=== PATIENT | male | born 1970 | race Caucasian/White ===

== ENCOUNTER 2019-08-12 08:57 | Day surgery (SDC) | payer OTHER, SELFPAY ==
[2019-01-07 09:51] VITALS: BMI 38.9
[2019-08-05 09:30] VITALS: BMI 38.9
--- NOTE | 2019-08-05 09:48 | RAD_ITS ---
STUDY: X-RAY CHEST REASON FOR EXAM: Male, 49 years old. Left-sided pacemaker. TECHNIQUE: PA and lateral views of the chest. COMPARISON: None. FINDINGS: A left-sided pacemaker with the lead overlying the heart. The lungs are clear and expanded. There is no demonstrated pleural abnormality. Normal size heart. Normal mediastinum and neris. Normal visualized pulmonary arteries. Normal visualized aortic arch and descending thoracic aorta. There are diffuse degenerative changes of the visualized thoracic spine. Normal visualized ribs, clavicles, and shoulders. There is no demonstrated abnormality of the visualized soft tissue structures of the upper abdomen. RAD/Chest PA and Lateral IMPRESSION: Left-sided pacemaker. Borderline cardiac enlargement. No demonstrated acute cardiopulmonary process. Electronically Signed: Lauren Portillo MD at 17:09 EST Tel , Service support ,
[2019-08-05 10:37] LABS: Color, Urine Yellow (Yellow); Glucose, Dipstick Normal (Normal); Ketone-Dipstick Negative (Negative); Leukocyte Esterase-Dipstick 25 /ul (Negative); Nitrite-Dipstick Negative (Negative); Occult Blood-Urine Negative /ul (Negative); Protein-Dipstick 15 mg/dl (Negative); Urine Bilirubin Dipstick Negative (Negative); Urine Clarity Sl. Cloudy (Clear); Urine Urobilinogen Normal (Normal)
[2019-08-05 10:39] LABS: Hematocrit 46.5 % (40-54); Hemoglobin 16.1 g/dL (13.0-16.5); Mean Corp Hgb Conc 34.6 g/dL (32-36); Mean Corpuscular Hgb 30.9 pg (27.0-32.0); Mean Corpuscular Volume 89.3 fL (80-94); Mean Platelet Vol. 10.8 fl (6.2-12.0); Platelet Count 298 K/mm3 (150-450); RBC Distribution Width CV 12.8 % (11.6-14.6); RBC Distribution Width SD 41.8 fl (35.1-43.9); Red Blood Count 5.21 M/mm3 (4.6-6.2)
[2019-08-05 10:47] LABS: Bacteria 1+ /hpf (None Seen); Mucous, Urine 2+ /hpf (<or=2+); Red Blood Cells-Urine 0-5 SEEN /hpf (0-5); Squamous Epithelial Cells - UA 0-5 SEEN /hpf (0-5); White Blood Cells 5-10 SEEN /hpf (0-5)
[2019-08-05 10:55] LABS: International Normalized Ratio 0.9; Prothrombin Time (Protime)PT. 12.4 SECONDS (11.7-14.9)
[2019-08-05 10:57] LABS: Anion Gap 5 (5-15); BUN 12 mg/dL (7-18); BUN/Creat Ratio 11.7 RATIO (10-20); Calcium,Total 9.2 mg/dL (8.5-10.1); Chloride 109 mmol/L (98-107); Creatinine, Serum 1.03 mg/dL (0.70-1.30); EST Glomerular Filtration Rate 82 mL/min (>60); Est Glom Filt Rate - Afr Amer 99 mL/min (>60); Glucose 108 mg/dL (74-106); Potassium 3.7 mmol/L (3.5-5.1); Sodium Level 141 mmol/L (136-145)
[2019-08-09 08:57] LABS: Bacteria 0 SEEN /hpf (None Seen); Mucous, Urine 0 SEEN /hpf (<or=2+); Red Blood Cells-Urine 0 SEEN /hpf (0-5); White Blood Cells 0 SEEN /hpf (0-5)
[2019-08-09 09:23] VITALS: BMI 37.8
[2019-08-09 10:21] LABS: Color, Urine Yellow (Yellow); Glucose, Dipstick Normal (Normal); Ketone-Dipstick Negative (Negative); Leukocyte Esterase-Dipstick Negative /ul (Negative); Nitrite-Dipstick Negative (Negative); Occult Blood-Urine Negative /ul (Negative); Protein-Dipstick Negative (Negative); Urine Bilirubin Dipstick Negative (Negative); Urine Clarity Clear (Clear); Urine Urobilinogen Normal (Normal)
[2019-08-09 10:22] LABS: Hematocrit 49.5 % (40-54); Mean Corp Hgb Conc 34.3 g/dL (32-36); Mean Corpuscular Hgb 30.5 pg (27.0-32.0); Mean Corpuscular Volume 88.9 fL (80-94); Mean Platelet Vol. 11.5 fl (6.2-12.0); Platelet Count 319 K/mm3 (150-450); RBC Distribution Width CV 13.1 % (11.6-14.6); RBC Distribution Width SD 42.3 fl (35.1-43.9); Red Blood Count 5.57 M/mm3 (4.6-6.2); White Blood Count 10.3 K/mm3 (4.4-11.0)
[2019-08-09 10:30] LABS: Squamous Epithelial Cells - UA 0-5 SEEN /hpf (0-5)
--- NOTE | 2019-08-12 10:48 | CL.IE_ITS ---
Patient: RHETT SILVA Study Date: 08/12/2019 Performing: Jerry Dozier MD : 1970 Age: 49 Gender: male PROCEDURES PERFORMED IG70-OXOPAGT REMOVAL+REPLACEMENT PACER-SINGLE LEAD INDICATIONS Sinoatrial node dysfunction/Sick sinus syndrome End-of-life replacement indicator PROCEDURE DETAILS The patient was brought to the Catheterization Lab in the postabsorptive nonsedated state. Infor med consent was obtained prior to the procedure. Local anesthetic was given subcutaneously to the le ft subclavian region with Lidocaine 2%. Incision was made to the left subclavicular area. PPM generat or was removed. PPM ventricular lead (existing) was checked and tested. Device pocket was irrigated w ith antibiotic. Subcutaneous closure was completed with 3-0 Vicryl. Skin closure was completed with 3 -0 Vicryl. The patient tolerated the procedure well. 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 Ancef 2 Gm IV @ 08/12/2019 09:47:35 Signed By Jerry Dozier MD On 08/12/2019 10:48:04 Jerry Dozier MD
== END 2019-08-12 12:05 | disposition home or self-care (01) ==
LOC: CLSP 08:58
PROVIDERS: Internal Medicine Cardiovascular Disease; Family Provider Family Medicine; PCP Family Medicine; Referring Provider Internal Medicine Cardiovascular Disease; Visit Provider Internal Medicine Cardiovascular Disease
DX: Z45.010 Encounter for checking and testing of cardiac pacemaker pulse generator [battery] (principal); I45.5 Other specified heart block; Z87.891 Personal history of nicotine dependence; I49.5 Sick sinus syndrome
CPT/HCPCS: 33227; 36415; 71046; 80048; 81001; 85027; 85610; 99152; 99153; J7050

== ENCOUNTER 2021-11-08 14:50 | Outpatient (CLI) | payer OTHER, SELFPAY ==
[2021-11-08 15:06] LABS: Bacteria 0 SEEN /hpf (None Seen); Mucous, Urine 0 SEEN /hpf (<or=2+); Red Blood Cells-Urine 0 SEEN /hpf (0-5); Squamous Epithelial Cells - UA 0 SEEN /hpf (0-5); White Blood Cells 0 SEEN /hpf (0-5)
[2021-11-08 18:05] LABS: Absolute Lymphocyte Count 2.06 X10^3/uL (0.83-4.51); Absolute Neutrophil Count 8.1 X10^3/uL (2.0-7.7); Basophil# 0.05 X10^3/uL; Basophil% 0.4 % (0-1); Eosinophil# 0.13 X10^3/uL; Eosinophils% 1.1 % (0-5); Hematocrit 48.4 % (40-54); Lymphocyte # 2.06 X10^3/ul (0.83-4.51); Lymphocyte % 18.1 % (19-41); Mean Corp Hgb Conc 35.1 g/dL (32-36); Mean Corpuscular Hgb 31.3 pg (27.0-32.0); Mean Corpuscular Volume 89.1 fL (80-94); Mean Platelet Vol. 11.6 fl (6.2-12.0); Monocyte% 8.8 % (0-10); NRBC Flagged by Analyzer 0 % (0-5); Neutrophil # 8.09 X10^3/uL (2.7-7.7); Neutrophil % 71.4 % (47-70); Platelet Count 301 K/mm3 (150-450); RBC Distribution Width CV 12.9 % (11.6-14.6); RBC Distribution Width SD 42.2 fl (35.1-43.9); Red Blood Count 5.43 M/mm3 (4.6-6.2); White Blood Count 11.4 K/mm3 (4.4-11.0)
[2021-11-08 18:12] LABS: Color, Urine Yellow (Yellow); Glucose, Dipstick Normal (Normal); Ketone-Dipstick 5 mg/dl (Negative); Leukocyte Esterase-Dipstick Negative /ul (Negative); Nitrite-Dipstick Negative (Negative); Occult Blood-Urine 10 /ul (Negative); Protein-Dipstick 15 mg/dl (Negative); Specific Gravity, Urine 1.025 (1.002-1.030); Urine Bilirubin Dipstick Negative (Negative); Urine Clarity Clear (Clear); Urine Urobilinogen Normal (Normal)
[2021-11-08 18:25] LABS: Calcium Oxalate Crystals Ur RARE /hpf (<or=2+)
[2021-11-08 18:56] LABS: ALB/GLOB Ratio 1.1 RATIO (0.9-2.4); AST(SGOT) 28 U/L (15-37); Alanine Aminotransfer ALT/SGPT 54 U/L (16-61); Albumin, Serum 3.9 g/dL (3.2-5.0); Alkaline Phosphatase 66 U/L (45-117); Anion Gap 5 (5-15); BUN 18 mg/dL (7-18); BUN/Creat Ratio 16.4 RATIO (10-20); Calcium,Total 9.6 mg/dL (8.5-10.1); Chloride 109 mmol/L (98-107); Cholesterol 144 mg/dL (200); EST Glomerular Filtration Rate 75 mL/min (>60); Est Glom Filt Rate - Afr Amer 91 mL/min (>60); Globulin 3.6 g/dL (2.2-4.2); Glucose 91 mg/dL (74-106); High Density Lipoprotein 39 mg/dL; Potassium 4.1 mmol/L (3.5-5.1); Protein, Total 7.5 g/dL (6.4-8.2); Sodium Level 138 mmol/L (136-145); Thyroid Stim Hormone (TSH) 0.93 uIU/mL (0.358-3.74); Triglycerides 292 mg/dL; Very Low Density Lipoprotein 58 mg/dL (5-40)
== END 2021-11-08 23:59 | disposition home or self-care (01) ==
LOC: MTLAB 14:52
PROVIDERS: PCP Family Medicine; Referring Provider Family Medicine; Visit Provider Family Medicine
DX: E66.9 Obesity, unspecified (principal); R03.0 Elevated blood-pressure reading, without diagnosis of hypertension
CPT/HCPCS: 36415; 80053; 80061; 81001; 83735; 84443; 85025

== ENCOUNTER 2021-11-11 09:14 | Outpatient (CLI) | payer OTHER, SELFPAY ==
[2021-11-11 10:45] LABS: Ferritin 143 ng/mL (26-388); Iron 99 ug/dL (65-175); Iron Binding Capacity,Total 356 ug/dL (250-450); PERCENT IRON SATURATION 27.8 % (15.0-55.0)
[2021-11-12 13:37] LABS: Transferrin 277 mg/dL (177-329)
== END 2021-11-11 23:59 | disposition home or self-care (01) ==
LOC: MFPLAB 09:15
PROVIDERS: PCP Family Medicine; Referring Provider Family Medicine; Visit Provider Family Medicine
DX: R03.0 Elevated blood-pressure reading, without diagnosis of hypertension (principal); E66.9 Obesity, unspecified
CPT/HCPCS: 36415; 82728; 83540; 83550; 84466

== ENCOUNTER 2021-11-30 15:17 | Outpatient (CLI) | payer OTHER, SELFPAY ==
--- NOTE | 2021-11-30 16:14 | CT_ITS ---
STUDY: LOW DOSE CT LUNG CANCER SCREENING REASON FOR EXAM: Male, 51 years old. HX. OF TOBACCO ABUSE. One pack per day for 20 years. RADIATION DOSAGE (If Supplied By Facility): CTDIvol = ( 4.02 ) mGy, DLP = ( 109.78 ) mGycm TECHNIQUE: No contrast was administered. Low dose technique was utilized (average mAS-38 and kVp 120). 1.25 mm axial source images with a slice interval of 1.25-mm were reconstructed in lung windows. 2.5 mm axial source images with a slice interval of 2.5-mm were reconstructed in lung windows. 5.0 mm axial source images with a slice interval of 5.0-mm were reconstructed in soft tissue windows. Nodule measured using lung windows on PACS and/or independent workstation with automated measurement of minimum and maximum diameter. Nodule measurement reported as average diameter rounded to the nearest whole number. Growth is defined as an increase ins size of greater than 1.5 mm. COMPARISON: None. NODULES: No suspicious nodules are seen. Emphysema: No significant emphysematous changes are present. Endobronchial lesion: None Aorta: Unremarkable Coronary arteries: Unremarkable Heart: A left-sided unipolar pacemaker is seen. Pulmonary artery: Unremarkable Mediastinal nodes: Unremarkable Other chest and abdominal findings: CT/Low Dose CT Lung Screening IMPRESSION: Lung-RADS category 2 - Continue annual screening with LDCT in 12 months. IMPORTANT NOTES FOR USE: ACR Lung-RADS Version 1.1 Assessment Categories Release Date: 2018 Category: Coded 0-4 bases on nodule(s) with highest degree of suspicion. Negative screen is defined as categories 1 and 2; a positive screen is defined as categories 3 and 4. Category 3 and 4A nodules that are unchanged on interval CT should be coded as category 2, and individuals returned to screening in 12 months. Category 4X: Category 3 or 4 nodules with additional imaging findings that increase the suspicion of lung cancer, such as spiculation, GGN that doubles in size in 1 year, enlarged lymph notes, etc. Category Modifiers: S (significant finding unrelated to lung cancer) Electronically Signed: Miki Samayoa MD at 8:51 EDT ,
== END 2021-11-30 23:59 | disposition home or self-care (01) ==
LOC: CT 15:24
PROVIDERS: PCP Family Medicine; Referring Provider Family Medicine; Visit Provider Family Medicine
DX: Z12.2 Encounter for screening for malignant neoplasm of respiratory organs (principal); Z87.891 Personal history of nicotine dependence
CPT/HCPCS: 71271

== ENCOUNTER 2022-01-14 07:00 | Day surgery (SDC) | payer OTHER, SELFPAY ==
[2022-01-14] VITALS (7 sets, daily range): BP systolic 107–145; BP diastolic 53–94; PULSE 54–67; RESP 16–18; TEMP 36.3–36.8; O2SAT 92–100; BMI 37.1
--- NOTE | 2022-01-14 07:25 | HP.PCM_ITS ---
History and Physical Date of Admission: 01/14/22 Intake Visit Reasons: C-Scope/Needs OV per OA Chief Complaint: screening colonoscopy/ EGD for GERD Budget Accountant Required: No Is patient in pain?: No Allergies Sulfa (Sulfonamide Antibiotics) Allergy (Unknown, Verified 05/20/21 09:26) Unknown Medications omeprazole 20 mg capsule,delayed release 20 mg PO DAILY cap 12/10/21 [History Confirmed 12/10/21] [facility] Medical History (Updated 12/10/21 @ 13:[address] Tree Benavidez MD) GERD (gastroesophageal reflux disease) Presence of cardiac pacemaker Sinoatrial block Sleep apnea Syncope and collapse Surgical History (Updated 12/10/21 @ 12:58 by Samantha Matias) History of permanent cardiac pacemaker placement (~07/2006) History of permanent cardiac pacemaker placement (~08/2020) History of tonsillectomy and adenoidectomy Family History (Updated 12/10/21 @ 13:00 by Samantha Matias) Father Brain aneurysm Brother Multiple sclerosis Uncle CAD (coronary artery disease) Grandfather CAD (coronary artery disease) Grandfather CVA (cerebral vascular accident) Cancer Lung Grandmother Breast cancer Social History (Reviewed 05/20/21 @ 09:26 by Amilcar Martini PATIENT SERVICES SPECIALIST, PATIENT SERVICES SPECIALIST-C) Smoking Status: Former smoker alcohol intake: never substance use type: does not use HPI HPI HPI: RHETT SILVA, is a 51 M who presents to the office today for surgical consultation regarding a screening colonoscopy. The patient is referred by Dr Amilcar Wayne and a written copy of my surgical consult recommendations will return to him. It is pertinent that the patient has had a pacemaker in place since age 35. Report suggest that he weighed 200 pounds graduated from high school in the high as he weighed was 286 pounds. He has symptoms of gastroes ophageal reflux disease that initiated in the 1990s. He has never had an upper endoscopy. He started smoking at the age of 14. Maximum a pack per day for 27 years. He is on omeprazole therapy for his GERD. Current body weight is listed at 272 pounds with a BMI of 37.9. There is concerns that he may have sleep apnea and he is being referred to Dr. Tree Keene of pulmonology. The patient has had long-term gastroesophageal reflux disease. He takes omeprazole 20 mg nightly. He used to take it as needed but now is on it constantly. Spicy foods will make him reflux. He does have some reflux at night as well He denies bright red blood per rectum or melena. He quit smoking cigarettes 12 years ago. is Tanvi ISSA General General: No weight change, appetite, fatigue, colon cancer, breast cancer or weakness HEENT HEENT: No difficulty swallowing, eye injury, eye surgery, swollen glands or hoarseness Endo Endocrine: No thyroid disease, diabetes mellitus, thyroid cancer, Hair loss, heat intolerance or cold intolerance Musc Musculoskeletal: No back problems, arthritis, rheumatoid arthritis, gout or joint pain Cardio Cardiovascular: Yes pacemaker; No murmur, heart disease, atrial fibrillation, high blood pressure, heart attack, heart stent, palpitations, shortness of breat with exertion or chest pain Psych Psychiatric: No depression, anxiety or hearing voices Resp Respiratory: No shortness of breath, No sleep apnea, No cough, No COPD, No asthma, No emphysema and No wheezing Gastro Gastrointestinal: No abdominal pain, No nausea or vomiting, No diarrhea, No constipation, No blood in stool, Yes acid reflux, No hemorrhoids, No ulcers, No gallbladder problem and No black,tarry stools Fernando Hematologic: No blood thinners, No blood disorders, No bleeding, No anemia and No blood clots Neuro Neurologic: No weakness Exam Const General: cooperative, healthy appearing, comfortable and no acute distress Nutritional Appearance: obese [facility] Head: normal to inspection Chest Chest palpation & inspection: normal inspection of the chest Resp Effort & Inspection: normal respiratory effort Auscultation: clear to auscultation bilaterally Cardio Rate: regular rate Rhythm: regular rhythm GI Inspection: large pannus Palpation: soft Auscultation: normal bowel sounds Musc Cervical Spine: normal cervical lordosis Neuro General: patient alert and patient awake Extrem General: no calf tenderness Psych Appearance: grossly normal Assessment and Plan Assessment and Plan (1) GERD (gastroesophageal reflux disease): Status: Acute Qualifiers: Esophagitis presence: esophagitis presence not specified Qualified Code(s): K21.9 - Gastro-esophageal reflux disease without esophagitis (2) Screening for intestinal cancer: Status: Acute Plan - Dr. Tree Benavidez MD: I recommended the patient a esophagogastroduodenoscopy with possible biopsy or polypectomy as indicated. I recommended the patient a screening colonoscopy with possible biopsy or polypectomy. He is aware of the technique, benefit, risk, alternatives. He has had an opportunity to ask and have questions answered. We will schedule procedure as noted. We will utilize monitored anesthesia care. This will help monitor his indwelling pacemaker. Anticipate using an adult colonoscope Copy: Dr Amilcar Benavidez M.D., F.A.C.S. I have re-examined the patient. There are no clinical changes since date of exam.
[2022-01-14] MEDS: Lactated Ringers 1,000 ML 15 ML IV (07:34)
--- NOTE | 2022-01-14 08:00 | IMM_PTH ---
PATIENT: RHETT SILVA LOC: EN U#:[id number] AGE/SX: 51/M ROOM: RE01/14/[address]: Dr. Tree Benavidez MD : 1970 BED: DIS: 01/14/2022 SPEC #: [id number] RECD: 01/14/22 13:09 STATUS: ELLEN RERuthy #: [id number] DEIDRA: 01/14/22 08:[address]: Tree Benavidez DEPT: IMMUNOHISTOCHEMISTRY RECD BY: Lizzy Foster ENTERED: 01/14/22 13:10 SP TYPE: IMMUNO OTHR DR: Dr. Amilcar Wayne MD Tissues: A - Stomach, NOS C - Esophagus, NOS Procedures: H Pylori (initial) P53 (initial) KI-67 (add) PHYSICIAN & INSTITUTION [place] [id number] SPECIMEN INFORMATION: Tissue Source: A ? Antrum biopsy, C ? Distal esophagus biopsy Clinical Info: GERD, screening Specimen Number: [id number] A & C CPT code: 68666 x2, 27140 METHODOLOGY: Deparaffinized sections of prefer/formalin-fixed tissue or PAP/DQ stained slides are incubated with monoclonal/polyclonal antibodies/oligonucleotide probes. Localization is made via biotin free immunoperoxidase method. Appropriate controls are performed and reacted as expected. Results on target cell population are indicated in the following table: RESULTS: ANTIBODY / CLONE RESULT Block A H Pylori (polyclonal) negative Block C P53 (DO-7) negative Ki-67 (30-9) positive, low These tests were developed and their performance characteristics determined by [facility]. They may not have been cleared or approved by the U.S. Food and Drug Administration. The FDA has determined that such clearance or approval is not necessary. The above immunohistochemical/dualISH markers are ordered and reviewed by the Pathologist. INTERPRETATION: A. Antrum, biopsy: Negative for Helicobacter pylori organisms. C. Proximal esophagus, biopsy: No evidence of dysplasia. AM:jim 01/18/2022
--- NOTE | 2022-01-14 08:00 | EGD_PTH ---
PATIENT: RHETT SILVA LOC: EN U#:[id number] AGE/SX: 51/M ROOM: RE01/14/[address]: Dr. Tree Benavidez MD : 1970 BED: DIS: 01/14/2022 SPEC #: [id number] RECD: 01/14/22 11:39 STATUS: ELLEN MELISSA #: [id number] DEIDRA: 01/14/22 08:[address]: Tree Benavidez DEPT: SURGICAL PATHOLOGY RECD BY: Doris Mahmood ENTERED: 01/14/22 12:39 SP TYPE: EGD BIOPSY OT DR: Dr. Amilcar Wayne MD Tissues: A - Gastric mucous membrane B - Stomach, NOS C - Esophagus, NOS D - Esophagus, NOS Procedures: Special Stain Group II Surgery Specimen Level IV Alcian Blue/PAS (control) HEADER OPERATION: Colonoscopy, EGD (MAC), biopsy PRE-OP DIAGNOSIS: GERD, screening TISSUE SUBMITTED: A ? Antrum biopsy for histo and H. pylori, B ? greater curvature polyp biopsy, C ? Distal esophagus biopsy, D ? Proximal esophagus biopsy MICROSCOPIC DIAGNOSIS A. Gastric antrum, biopsy: Chronic gastritis. See comment. B. Greater curvature of stomach, biopsy: Chronic gastritis, focal changes suspicious for fundic gland polyp. C. Distal esophagus, biopsy: Gastroesophageal junctional mucosa with mild chronic inflammation. Focal goblet cell metaplasia. No evidence of dysplasia. See comment. D. Proximal esophagus, biopsy: Gastroesophageal junctional mucosa with mild chronic inflammation. See comment. AM:jim 01/17/2022 COMMENT A. The results of immunohistochemistry for Helicobacter pylori will be reported separately ([id number]). C. Immunohistochemistry ([id number]) for P53 and Ki-67 will be performed and results will be reported separately. Alcian blue/PAS stain with matched control supports the above diagnosis. D. Alcian blue/PAS stain with matched control supports the above diagnosis. MICROSCOPIC DESCRIPTION Slides are reviewed. GROSS DESCRIPTION A - Received in fixative is one container labeled with the patient's name and designated antrum biopsy. The specimen consists of one irregular fragment of light rios soft tissue that measures 0.5 x 0.4 x 0.1 cm. The specimen is totally submitted in one cassette. B - Received in fixative is one container labeled with the patient's name and designated greater curvature polyp biopsy. The specimen consists of multiple irregular fragments of light rios soft tissue that in aggregate measure 1.5 x 0.3 x 0.1 cm. The specimen is totally submitted in one cassette. C - Received in fixative is one container labeled with the patient's name and designated distal esophagus biopsy. The specimen consists of multiple irregular fragments of light rios soft tissue that in aggregate measure 1.5 x 0.5 x 0.1 cm. The specimen is totally submitted in one cassette. D - Received in fixative is one container labeled with the patient's name and designated proximal esophagus biopsy. The specimen consists of one irregular fragment of light rios soft tissue that measures 0.6 x 0.3 x 0.1 cm. The specimen is totally submitted in one cassette. / SJ:rg 01/14/2022 TC:3 CPT: 39778 x4, 92536 x2
--- NOTE | 2022-01-14 09:05 | OP.EGD_ITS ---
Patient Name: Jamel Wells Procedure Date: 01/14/2022 8:12 AM Date of : 1970 Age: 51 Procedure: Upper GI endoscopy Indications: Suspected esophageal reflux Providers: Tree Benavidez MD Referring MD: Amilcar Wayne Medicines: See the Anesthesia note for documentation of the administered medications Complications: No immediate complications. Procedure: Pre-Anesthesia Assessment: - Prior to the procedure, a History and Physical was performed, and patient medications and allergies were reviewed. The patient's tolerance of previous anesthesia was also reviewed. The risks and benefits of the procedure and the sedation options and risks were discussed with the patient. All questions were answered, and informed consent was obtained. Prior Anticoagulants: The patient has taken no previous anticoagulant or antiplatelet agents. ASA Grade Assessment: II - A patient with mild systemic disease. After reviewing the risks and benefits, the patient was deemed in satisfactory condition to undergo the procedure. After obtaining informed consent, the endoscope was passed under direct vision. Throughout the procedure, the patient's blood pressure, pulse, and oxygen saturations were monitored continuously. The gastroscope was introduced through the mouth, and advanced to the second part of duodenum. The upper GI endoscopy was accomplished without difficulty. The patient tolerated the procedure well. Scope In: 8:24:29 AM Scope Out: 8:34:23 AM Total Procedure Duration Time 0 hours 9 minutes 54 seconds Findings: LA Grade A (one or more mucosal breaks less than 5 mm, not extending between tops of 2 mucosal folds) esophagitis was found 40 cm from the incisors. Biopsies were taken with a cold forceps for histology. Esophagitis with no bleeding was found 15 cm from the incisors. Biopsies were taken with a cold forceps for histology. A few sessile polyps with no bleeding and no stigmata of recent bleeding were found on the greater curvature of the stomach. The polyp was removed with a cold biopsy forceps. Resection and retrieval were complete. Diffuse mildly erythematous mucosa without bleeding was found in the gastric antrum. Biopsies were taken with a cold forceps for histology. The examined duodenum was normal. Impression: - LA Grade A reflux esophagitis. Rule out Carmichael's esophagus. Biopsied. - Reflux esophagitis. Rule out Carmichael's esophagus. Biopsied. - A few gastric polyps. Resected and retrieved. - Erythematous mucosa in the antrum. Biopsied. - Normal examined duodenum. Recommendation: - Discharge patient to home. - Resume previous diet. - Continue present medications. - Use Prilosec (omeprazole) 40 mg PO daily Abnormal mucosa noted distal esophagus and very proximal esophagus with both biopsied. Procedure Code(s): --- Professional --- 89346, Esophagogastroduodenoscopy, flexible, transoral; with biopsy, single or multiple Diagnosis Code(s): --- Professional --- K21.0, Gastro-esophageal reflux disease with esophagitis K31.7, Polyp of stomach and duodenum K31.89, Other diseases of stomach and duodenum CPT copyright 2017 [employer]. All rights reserved. The codes documented in this report are preliminary and upon office support specialist review may be revised to meet current compliance requirements. Tree Benavidez MD 01/14/2022 9:04:43 AM This report has been signed electronically. Number of Addenda: 0 Note Initiated On: 01/14/2022 8:12 AM
--- NOTE | 2022-01-14 09:06 | OP.CCLET_ITS ---
01/14/2022 Amilcar Wayne [address] [place] [address] Re : Upper GI endoscopy procedure for Jamel Wells Dear Dr. Wayne This procedure was performed on Friday, January 14, 2022. My impressions and recommendations are as follows: Impressions : - LA Grade A reflux esophagitis. Rule out Carmichael's esophagus. Biopsied. - Reflux esophagitis. Rule out Carmichael's esophagus. Biopsied. - A few gastric polyps. Resected and retrieved. - Erythematous mucosa in the antrum. Biopsied. - Normal examined duodenum. Recommendations : - Discharge patient to home. - Resume previous diet. - Continue present medications. - Use Prilosec (omeprazole) 40 mg PO daily Abnormal mucosa noted distal esophagus and very proximal esophagus with both biopsied. My findings are described in the full procedure note, which is enclosed. If I can be of further assistance, please feel free to contact me at Doctor phone number(s): Work: . Sincerely, Tree Benavidez MD 01/14/2022 9:04:43 AM This report has been signed electronically.
--- NOTE | 2022-01-14 09:12 | OP.COLON_ITS ---
Patient Name: Jamel Wells Procedure Date: 01/14/2022 8:35 AM Date of : 1970 Age: 51 Procedure: Colonoscopy Indications: Screening for colorectal malignant neoplasm Providers: Tree Benavidez MD Referring MD: Amilcar Wayne Medicines: See the Anesthesia note for documentation of the administered medications Patient Profile: Last Colonoscopy: none. The patient's first colonoscopy is today. Complications: No immediate complications. Procedure: Pre-Anesthesia Assessment: - Prior to the procedure, a History and Physical was performed, and patient medications and allergies were reviewed. The patient's tolerance of previous anesthesia was also reviewed. The risks and benefits of the procedure and the sedation options and risks were discussed with the patient. All questions were answered, and informed consent was obtained. Prior Anticoagulants: The patient has taken no previous anticoagulant or antiplatelet agents. ASA Grade Assessment: II - A patient with mild systemic disease. After reviewing the risks and benefits, the patient was deemed in satisfactory condition to undergo the procedure. After I obtained informed consent, the scope was passed under direct vision. Throughout the procedure, the patient's blood pressure, pulse, and oxygen saturations were monitored continuously. The adult colonoscope was introduced through the anus and advanced to the cecum, identified by appendiceal orifice and ileocecal valve. The colonoscopy was performed without difficulty. The patient tolerated the procedure well. The quality of the bowel preparation was good. The ileocecal valve and the appendiceal orifice were photographed. Scope In: 8:38:14 AM Scope Withdrawal Time 0 hours 13 minutes 56 seconds Scope Out: 8:57:34 AM Total Procedure Duration Time 0 hours 19 minutes 20 seconds Findings: The digital rectal exam findings include non-thrombosed external hemorrhoids, non-thrombosed internal hemorrhoids and internal hemorrhoids that prolapse with straining, but spontaneously regress to the resting position (Grade II). Pertinent negatives include normal prostate (size, shape, and consistency). The colon (entire examined portion) appeared normal. Impression: - Non-thrombosed external hemorrhoids, non-thrombosed internal hemorrhoids and internal hemorrhoids that prolapse with straining, but spontaneously regress to the resting position (Grade II) found on digital rectal exam. - The entire examined colon is normal. - No specimens collected. Recommendation: - Discharge patient to home. - Resume previous diet. - Continue present medications. - Repeat colonoscopy in 10 years for screening purposes. Procedure Code(s): --- Professional --- 79186, Colonoscopy, flexible; diagnostic, including collection of specimen(s) by brushing or washing, when performed (separate procedure) Diagnosis Code(s): --- Professional --- Z12.11, Encounter for screening for malignant neoplasm of colon K64.1, Second degree hemorrhoids K64.4, Residual hemorrhoidal skin tags CPT copyright 2017 [employer]. All rights reserved. The codes documented in this report are preliminary and upon incident response lead review may be revised to meet current compliance requirements. Tree Benavidez MD 01/14/2022 9:11:58 AM This report has been signed electronically. Number of Addenda: 0 Note Initiated On: 01/14/2022 8:35 AM
--- NOTE | 2022-01-14 09:13 | OP.CCLET_ITS ---
01/14/2022 Amilcar Wayne [address] [place] [address] Re : Colonoscopy procedure for Jamel Wells Dear Dr. Wayne This procedure was performed on Friday, January 14, 2022. My impressions and recommendations are as follows: Impressions : - Non-thrombosed external hemorrhoids, non-thrombosed internal hemorrhoids and internal hemorrhoids that prolapse with straining, but spontaneously regress to the resting position (Grade II) found on digital rectal exam. - The entire examined colon is normal. - No specimens collected. Recommendations : - Discharge patient to home. - Resume previous diet. - Continue present medications. - Repeat colonoscopy in 10 years for screening purposes. My findings are described in the full procedure note, which is enclosed. If I can be of further assistance, please feel free to contact me at Doctor phone number(s): Work: . Sincerely, Tree Benavidez MD 01/14/2022 9:11:58 AM This report has been signed electronically.
== END 2022-01-14 09:56 | disposition home or self-care (01) ==
LOC: EN 07:01 → AC 07:02
PROVIDERS: PCP Family Medicine; Referring Provider Family Medicine; Visit Provider Surgery
PROC: 0DJD8ZZ Inspection of Lower Intestinal Tract, Via Natural or Artificial Opening Endoscopic (ICD-10-PCS; CPT 45378; principal; 2022-01-14 07:55)
DX: Z12.11 Encounter for screening for malignant neoplasm of colon (principal); K31.7 Polyp of stomach and duodenum; K21.00 Gastro-esophageal reflux disease with esophagitis, without bleeding; Z87.891 Personal history of nicotine dependence; Z80.3 Family history of malignant neoplasm of breast; K64.4 Residual hemorrhoidal skin tags; K64.1 Second degree hemorrhoids; Z95.0 Presence of cardiac pacemaker
CPT/HCPCS: 45378; 43239; 88305; 88313; 88341; 88342; J7120; J2405

== ENCOUNTER → 2023-11-14 | Outpatient (CLI) | payer OTHER, SELFPAY ==
--- NOTE | 2023-11-14 10:50 | ECHOCS_ITS ---
Version 2 Reason For Study: NSVT, Pacemaker Procedure This was a 2D Doppler, Color Flow transthoracic echocardiogram. The study was technically difficult. Contrast injection was performed. Exam performed in department. Left Ventricle Normal LV size. Left ventricular systolic function is normal. The estimated ejection fraction is 65 %. Stage 2 diastolic dysfunction. No regional wall motion abnormalities noted. Right Ventricle Normal RV size. ICD or pacer leads identified within the right ventricle. Normal systolic function. Atria The left atrium is mildly enlarged. Normal right atrium. Mitral Valve Normal mitral valve. Tricuspid Valve Normal tricuspid valve. Mild (1+) tricuspid valve insufficiency. Pulmonary artery systolic pressure is 30 mmHg. Aortic Valve Trisinus/trileaflet aortic valve. Mild (1+) aortic valve insufficiency. Pulmonic Valve Normal pulmonic valve. Great Vessels Normal aortic root. Pericardium/Pleural No pericardial effusion. Medication 22 gauge I.V. with prn adaptor inserted into right arm. Diluted definity 1ml given slow IV push to enhance endocardial definition. MMode/2D Measurements & Calculations LVIDd: 4.8 cm IVSd: 1.00 cm Ao root diam: 3.2 cm LVIDs: 3.7 cm LVPWd: 1.00 cm LA dimension: 3.9 cm RVDd: 3.8 cm FS: 23.3 % LAV(MOD-bp): 64.2 ml LVAd ap4: 37.7 cm2 SV(MOD-sp4): 72.2 ml LAV(MOD-bp) Indexed: 26.5 ml/m2 LVLd ap4: 9.5 cm LAV(MOD-sp2): 49.5 ml EDV(MOD-sp4): 119.9 ml LAV(MOD-sp4): 79.2 ml EDV(sp4-el): 126.4 ml LVAs ap4: 20.6 cm2 LVLs ap4: 7.3 cm ESV(MOD-sp4): 47.7 ml ESV(sp4-el): 49.2 ml EF(MOD-sp4): 60.2 % EF(sp4-el): 61.1 % SV(sp4-el): 77.2 ml LA A4 area: 24.5 cm2 RA A4 area: 18.4 cm2 TAPSE: 2.3 cm Time Measurements MV dec time: 0.19 sec Doppler Measurements & Calculations MV E max alejandro: 82.0 cm/sec Lat Peak E' Alejandro: 11.9 cm/sec Med Peak E' Alejandro: 10.2 cm/sec MV A max alejandro: 63.9 cm/sec E/E' lat: 6.9 E/E' med: 8.0 MV E/A: 1.3 MV V2 max: 88.0 cm/sec MV P1/2t max alejandro: 88.0 cm/sec Ao V2 max: 132.1 cm/sec MV max P.1 mmHg MV P1/2t: 58.9 msec Ao max P.0 mmHg MV V2 mean: 47.0 cm/sec Ao V2 mean: 88.3 cm/sec MV mean P.1 mmHg MV dec slope: 437.8 cm/sec2 Ao mean P.6 mmHg MV V2 VTI: 24.1 cm MVA(P1/2t): 3.7 cm2 Ao V2 VTI: 27.6 cm AV (velocity ratio): 0.96 AI max alejandro: 479.1 cm/sec LV V1 max: 131.6 cm/sec PA V2 max: 128.6 cm/sec AI max P.8 mmHg LV V1 max P.9 mmHg PA V2 mean: 86.0 cm/sec LV V1 mean P.8 mmHg AI dec slope: 288.4 cm/sec2 LV V1 mean: 91.2 cm/sec AI P1/2t: 486.5 msec LV V1 VTI: 26.5 cm TR max alejandro: 255.2 cm/sec TR max P.1 mmHg ECHO/Echo Complete W/ Contrast Interpretation Summary Normal LV size. Left ventricular systolic function is normal. The estimated ejection fraction is 65 %. Stage 2 diastolic dysfunction. Pulmonary artery systolic pressure is 30 mmHg. ICD or pacer leads identified within the right ventricle. Contrast injection was performed. Ordering Physician: Edna Tenorio Referring Physician: Edna Tenorio Performed By: Kris Hoang RCS
== END | disposition home or self-care (01) ==
PROVIDERS: PCP Family Medicine; Referring Provider Nurse Practitioner Gerontology; Visit Provider Nurse Practitioner Gerontology
DX: I47.29 Other ventricular tachycardia (principal); Z95.0 Presence of cardiac pacemaker
CPT/HCPCS: 93306; Q9957; A4216; C8929

== ENCOUNTER → 2024-01-10 | Outpatient (CLI) | payer OTHER, SELFPAY ==
[2024-01-10 12:32] LABS: Absolute Neutrophil Count 6.3 X10^3/uL (2.0-7.7); Basophil# 0.06 X10^3/uL; Basophil% 0.6 % (0-1); Eosinophil# 0.17 X10^3/uL; Eosinophils% 1.7 % (0-5); Hematocrit 46.9 % (40-54); Hemoglobin 15.8 g/dL (13.0-16.5); Lymphocyte % 23.6 % (19-41); Mean Corp Hgb Conc 33.7 g/dL (32-36); Mean Corpuscular Volume 89.2 fL (80-94); Mean Platelet Vol. 11.7 fl (6.2-12.0); Monocyte# 0.83 X10^3/uL; Monocyte% 8.5 % (0-10); NRBC Flagged by Analyzer 0 % (0-5); Neutrophil # 6.33 X10^3/uL (2.7-7.7); Neutrophil % 65.2 % (47-70); Platelet Count 319 K/mm3 (150-450); RBC Distribution Width SD 42.5 fl (35.1-43.9); Red Blood Count 5.26 M/mm3 (4.6-6.2); White Blood Count 9.7 K/mm3 (4.4-11.0)
[2024-01-10 12:55] LABS: ALB/GLOB Ratio 1.1 RATIO (0.9-2.4); AST(SGOT) 31 U/L (15-37); Alanine Aminotransfer ALT/SGPT 64 U/L (16-61); Albumin, Serum 3.5 g/dL (3.2-5.0); Alkaline Phosphatase 71 U/L (45-117); Anion Gap 4 (5-15); BUN 11 mg/dL (7-18); BUN/Creat Ratio 11.2 RATIO (10-20); Chloride 107 mmol/L (98-107); Cholesterol 117 mg/dL (200); Creatinine, Serum 0.98 mg/dL (0.70-1.30); EST Glomerular Filtration Rate 85 mL/min (>60); Est Glom Filt Rate - Afr Amer 103 mL/min (>60); Globulin 3.3 g/dL (2.2-4.2); Glucose 120 mg/dL (74-106); High Density Lipoprotein 37 mg/dL; Potassium 3.9 mmol/L (3.5-5.1); Protein, Total 6.8 g/dL (6.4-8.2); Sodium Level 140 mmol/L (136-145); Triglycerides 158 mg/dL; Very Low Density Lipoprotein 32 mg/dL (5-40)
[2024-01-10 14:40] LABS: Hemoglobin A1c 5.9 % (3.8-5.6)
== END | disposition home or self-care (01) ==
LOC: MFPLAB 10:47
PROVIDERS: PCP Family Medicine; Visit Provider Family Medicine
DX: R73.02 Impaired glucose tolerance (oral) (principal); E66.9 Obesity, unspecified
CPT/HCPCS: 36415; 80053; 80061; 83036; 85025

== ENCOUNTER → 2024-08-20 | Outpatient (CLI) | payer OTHER, SELFPAY ==
--- NOTE | 2024-08-20 16:48 | CT_ITS ---
STUDY: LOW DOSE CT LUNG CANCER SCREENING REASON FOR EXAM: Male, 54 years old. History of tobacco use. Patient smoked 1 pack per day for 24 years. RADIATION DOSAGE (If Supplied By Facility): CTDIvol = ( 4.02 ) mGy, DLP = ( 127.88 ) mGycm TECHNIQUE: No contrast was administered. Low dose technique was utilized (average mAS-38 and kVp 120). 1.25 mm axial source images with a slice interval of 1.25-mm were reconstructed in lung windows. 2.5 mm axial source images with a slice interval of 2.5-mm were reconstructed in lung windows. 5.0 mm axial source images with a slice interval of 5.0-mm were reconstructed in soft tissue windows. COMPARISON: Comparison is made with prior study dated November 30, 2021. NODULES: Since prior study, there are multiple small scattered bilateral pulmonary nodules. The largest is in the peripheral lateral aspect of the left upper lobe and measures 7 mm. Possibly faint calcifications are seen. Emphysema: No significant emphysematous changes are seen. Endobronchial lesion: Not Aorta: Remarkable CORONARY ARTERIES: Coronary artery calcification is not seen. Heart: Unremarkable Pulmonary artery: Remarkable Mediastinal nodes: Unremarkable Other chest and abdominal findings: CT/Low Dose CT Lung Screening IMPRESSION: Lung-RADS category 3 - Continue screening with LDCT in 6 months. IMPORTANT NOTES FOR USE: ACR Lung-RADS Version 1.1 Assessment Categories Release Date: 2018 Category: Coded 0-4 bases on nodule(s) with highest degree of suspicion. Negative screen is defined as categories 1 and 2; a positive screen is defined as categories 3 and 4. Category 3 and 4A nodules that are unchanged on interval CT should be coded as category 2, and individuals returned to screening in 12 months. Category 4X: Category 3 or 4 nodules with additional imaging findings that increase the suspicion of lung cancer, such as spiculation, GGN that doubles in size in 1 year, enlarged lymph notes, etc. Category Modifiers: S (significant finding unrelated to lung cancer) Electronically Signed: Miki Samayoa MD at 14:01 EST ,
== END | disposition home or self-care (01) ==
LOC: CT 16:48
PROVIDERS: PCP Family Medicine; Referring Provider Family Medicine; Visit Provider Family Medicine
DX: Z12.2 Encounter for screening for malignant neoplasm of respiratory organs (principal); Z87.891 Personal history of nicotine dependence
CPT/HCPCS: 71271

== ENCOUNTER → 2024-10-22 | Outpatient (CLI) | payer OTHER, SELFPAY ==
[2024-10-22 12:47] LABS: Absolute Lymphocyte Count 1.73 X10^3/uL (0.83-4.51); Absolute Neutrophil Count 5.9 X10^3/uL (2.0-7.7); Basophil# 0.06 X10^3/uL; Basophil% 0.7 % (0-1); Eosinophil# 0.17 X10^3/uL; Hematocrit 48.7 % (40-54); Hemoglobin 16.2 g/dL (13.0-16.5); Lymphocyte # 1.73 X10^3/ul (0.83-4.51); Lymphocyte % 19.9 % (19-41); Mean Corp Hgb Conc 33.3 g/dL (32-36); Mean Corpuscular Hgb 30.1 pg (27.0-32.0); Mean Corpuscular Volume 90.4 fL (80-94); Mean Platelet Vol. 11.4 fl (6.2-12.0); Monocyte# 0.76 X10^3/uL; Monocyte% 8.8 % (0-10); NRBC Flagged by Analyzer 0 % (0-5); Neutrophil # 5.92 X10^3/uL (2.7-7.7); Neutrophil % 68.1 % (47-70); Platelet Count 339 K/mm3 (150-450); RBC Distribution Width CV 13.1 % (11.6-14.6); RBC Distribution Width SD 42.9 fl (35.1-43.9); Red Blood Count 5.39 M/mm3 (4.6-6.2); White Blood Count 8.7 K/mm3 (4.4-11.0)
[2024-10-22 13:48] LABS: AST(SGOT) 34 U/L (15-37); Alanine Aminotransfer ALT/SGPT 57 U/L (16-61); Albumin, Serum 3.9 g/dL (3.2-5.0); Alkaline Phosphatase 69 U/L (45-117); Anion Gap 7 (5-15); BUN 15 mg/dL (7-18); BUN/Creat Ratio 11.2 RATIO (10-20); Chloride 104 mmol/L (98-107); Cholesterol 144 mg/dL (200); Creatinine, Serum 1.34 mg/dL (0.70-1.30); EST Glomerular Filtration Rate 59 mL/min (>60); Est Glom Filt Rate - Afr Amer 71 mL/min (>60); Globulin 4.1 g/dL (2.2-4.2); Glucose 110 mg/dL (74-106); High Density Lipoprotein 41 mg/dL; Potassium 4.8 mmol/L (3.5-5.1); Sodium Level 140 mmol/L (136-145); Triglycerides 252 mg/dL; Very Low Density Lipoprotein 50 mg/dL (5-40)
[2024-10-22 14:00] LABS: Microalbumin:Creatinine Ratio 729.6 mg/g CRE (<30 mg/g CRE)
[2024-10-22 14:35] LABS: Hemoglobin A1c 6.4 % (3.8-5.6)
== END | disposition home or self-care (01) ==
LOC: MFPLAB 09:56
PROVIDERS: PCP Family Medicine; Referring Provider Family Medicine; Visit Provider Family Medicine
DX: E11.8 Type 2 diabetes mellitus with unspecified complications (principal)
CPT/HCPCS: 36415; 80053; 80061; 82043; 82570; 83036; 85025

== ENCOUNTER 2025-01-14 06:15 | Day surgery (SDC) | payer OTHER, SELFPAY ==
--- NOTE | 2025-01-09 15:03 | PAT.ANE_ITS ---
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 When Was Last Pacemaker Check 201811/19/24 08:55 QUESTION #4 FULL TEXT: You/Your Family Experience fever (hyperthermia) with Anesthesia Last Oral Intake Last Oral intake: Last Oral Intake NPO since Meds taken in AM with sips of water? 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 - painter and decorator apprentice: PONV - painter and decorator apprentice Female No 01/09/25 09:46 HX of Motion Sickness No 01/09/25 09:46 HX of N/V After Surgery No 01/09/25 09:46 Non-Smoker Yes 01/09/25 09:46 Duration of Surgery greater No 01/09/25 09:46 than 60 minutes Number of Risk Factors 1 01/09/25 09:46 PONV Score Low Risk 01/09/25 09:46 Height & Weight Height & Weight: Anesthesia: Height & Weight Height 5 ft 11 in 12/24/24 12:58 Respiratory Assessment Respiratory Assessment - painter and decorator apprentice: Respiratory Tract Infection Hx - painter and decorator apprentice Hx Respiratory Tract Infection No 01/09/25 09:46 STOP Sleep Apnea STOP Sleep Apnea - painter and decorator apprentice: STOP Sleep Apnea - painter and decorator apprentice Hx Hypertension No 01/09/25 09:46 Hx Sleep Apnea Yes 01/09/25 09:46 CPAP Yes 01/09/25 09:46 BIPAP No 01/09/25 09:46 Do you snore loudly (louder than talking or can be heard Do you often feel tired/ fatigued/ sleepy during daytime? Has anyone observed you stop breathing during sleep? STOP Results Positive 01/09/25 09:46 QUESTION #5 FULL TEXT : Do you snore loudly (louder than talking or can be heard through closed doors)? 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 Specify any problems Hx of Preganancy in last 3 N/A 01/09/25 09:46 Months Nurse Filling Out Transfusion NBUCHER 01/09/25 09:46 & Questions: Date: 01/09/25 01/09/25 09:46 Time: 09:48 01/09/25 09:46 Patient unable to answer at this time (ie. confused, unrespo /Reproduction History /Reproductive History - painter and decorator apprentice: /Reproductive Hx- painter and decorator apprentice Hx Now No 01/09/25 09:46 Gestational Age (in weeks): EDC: Hx Hx Para Hx Section SAB No 01/09/25 09:46 [facility] Medical History (Updated 01/09/25 @ 09:52 by Gissell Riggs) Loss of hearing Diabetes CPAP (continuous positive airway pressure) dependence Sleep apnea History of stress test History of echocardiogram Cardiology follow-up encounter Former smoker GERD (gastroesophageal reflux disease) Pacemaker at end of battery life Syncope and collapse Presence of cardiac pacemaker Sinoatrial block Home Medications ?Medication ?Instructions ?Recorded ?Last Taken ?Type omeprazole 40 mg capsule,delayed See Rx Instructions . Route 04/12/23 Unknown Rx release .COMPLEX #90 caps metformin 500 mg tablet,extended 250 mg PO BID 5 Unknown History release 24 hr Allergy/AdvReac Type Severity Reaction Status Date / Time Sulfa (Sulfonamide Allergy Unknown Unknown Verified 01/09/25 09:45 Antibiotics) Family History Father Brain aneurysm Brother Multiple sclerosis Uncle CAD (coronary artery disease) Grandfather CAD (coronary artery disease) Grandfather CVA (cerebral vascular accident) Cancer Lung Grandmother Breast cancer Surgical History (Updated 01/09/25 @ 09:52 by Gissell Riggs) History of colonoscopy History of esophagogastroduodenoscopy (EGD) History of permanent cardiac pacemaker placement (~08/2020) History of permanent cardiac pacemaker placement (~07/2006) History of tonsillectomy and adenoidectomy Social History Smoking Status: Former smoker alcohol intake: never substance use type: does not use Audit: Pertinent Findings Pertinent Findings EKG Perinent findings: 08/05/19. Sinus rhythm. Echo (EF%) pertinent findings: 11/14/2023. EF equals 65%. PASP is 30 mmHg. No aortic stenosis is noted. Pacer leads noted in the right ventricle. Consult pertinent findings: 11/26/2024. Dr. Dozier. 1. Cardiac pacemaker?chronic-generator last changed 08/12/2019. This is a single chamber pacemaker. Last interrogation shows battery longevity of 6 and half years. Ventricular sensed 64 bpm. Recommendation Anesthesia Recommendation Anesthesia recommendation: OPTIMIZED for anesthesia
[2025-01-14] VITALS (9 sets, daily range): BP systolic 120–165; BP diastolic 65–83; PULSE 63–71; RESP 14–18; TEMP 36.3–36.9; O2SAT 93–97; BMI 39.3
--- NOTE | 2025-01-14 06:54 | PCM.HP.BLA ---
History and Physical Date of Admission: 01/14/25 Intake Vital Signs 10/09/2409:55 11/20/2507:55 11/26/2510:16 12/25/2511:58 Height 5 ft 11 in 5 ft 11 in 5 ft 11 in 5 ft 11 in Weight: 283 lb 284 lb 8 oz BMI 39.4 39.6 BP 150/79 H 144/76 H Blood Pressure Location Lt brachial Rt brachial Position Sitting Sitting Respiration 16 18 Pulse 67 73 Pulse Source Monitor Monitor Temp 97.2 F L Temp Source Temporal Pulse Oximetry (%) 100 Oxygen Delivery Method room air Intake Visit Reasons: RECALL EGD Chief Complaint: recall EGD Accompanied by: Is patient in pain?: No Allergies Sulfa (Sulfonamide Antibiotics) Allergy (Unknown, Verified 11/26/24 11:17) Unknown Medications ?Medication ?Instructions ?Recorded ?Confirmed ?Type omeprazole 40 mg capsule,delayed See Rx Instructions .Route 04/12/23 12/24/24 Rx release .COMPLEX #90 caps metformin 500 mg tablet,extended 250 mg PO BID 11/26/24 12/24/24 History release 24 hr PFSH Medical History Former smoker GERD (gastroesophageal reflux disease) Pacemaker at end of battery life Syncope and collapse Presence of cardiac pacemaker Sinoatrial block Surgical History History of permanent cardiac pacemaker placement (~08/2020) History of permanent cardiac pacemaker placement (~07/2006) History of tonsillectomy and adenoidectomy Family History Father Brain aneurysmBrother Multiple sclerosisUncle CAD (coronary artery disease)Grandfather CAD (coronary artery disease)Grandfather CVA (cerebral vascular accident) Cancer LungGrandmother Breast cancer Social History Smoking Status: Former smoker alcohol intake: never substance use type: does not use HPI HPI HPI: Patient is a 54-year-old male here for EGD. 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 He was ordered to follow-up in 3 years for repeat. He denies any abdominal pain at this time. ROS General General: No weight change, appetite, fatigue, colon cancer, breast cancer or weakness HEENT HEENT: No difficulty swallowing, eye injury, eye surgery, swollen glands or hoarseness Endo Endocrine: No thyroid disease, diabetes mellitus, thyroid cancer, Hair loss, heat intolerance or cold intolerance Skin Skin: No rash or changing moles Musc Musculoskeletal: No back problems, arthritis, rheumatoid arthritis, gout or joint pain Cardio Cardiovascular: Yes pacemaker; No murmur, heart disease, atrial fibrillation, high blood pressure, heart attack, heart stent, palpitations, shortness of breath with exertion or chest pain Psych Psychiatric: No depression, anxiety or hearing voices Resp Respiratory: No shortness of breath, Yes sleep apnea, No cough, No COPD, No asthma, No emphysema and No wheezing Gastro Gastrointestinal: No abdominal pain, No nausea or vomiting, No diarrhea, No constipation, No blood in stool, Yes acid reflux, No hemorrhoids, No ulcers, No gallbladder problem and No black,tarry stools Fernando Hematologic: No blood thinners, No blood disorders, No bleeding, No anemia and No blood clots Neuro Neurologic: No numbness, No tingling and No weakness Exam Const General: cooperative Orientation: alert and oriented x3 HENMT Head: normal to inspection Neck Neck: normal visual inspection and full ROM Chest Chest palpation & inspection: normal inspection of the chest Resp Effort & Inspection: normal respiratory effort Auscultation: clear to auscultation bilaterally Cardio Rate: regular rate Rhythm: regular rhythm GI Inspection: non-distended Palpation: soft and nontender Skin General: no rashes or lesions noted Neuro General: patient alert and patient oriented x3 Extrem General: full ROM Psych Appearance: grossly normal Mental Status: mental status grossly normal Assessment and Plan Assessment and Plan (1) History of Carmichael's esophagus: Status: Acute Plan: Patient has a history of Carmichael's and requires surveillance EGD. I discussed this with him in detail. I explained endoscopy in detail to the patient. I explained the risks including but not limited to stroke or heart attack with anesthesia, perforation of the GI tract, bleeding, infection. I explained that any of these could necessitate further emergency surgery. The patient understands and all questions were answered sufficiently. The patient wishes to proceed with procedure. Jairon Bernstein MD Pager: [facility] [address] [place] [address], [address] [place] [address] Office: I have examined the patient and the H&P has been reviewed. There are no clinical changes since date of exam.
[2025-01-14] MEDS: Lactated Ringers 1,000 ML 15 ML IV (07:08)
[2025-01-14 07:29] LABS: Bedside Glucose 166 mg/dL (74-106)
--- NOTE | 2025-01-14 07:30 | EGD_PTH ---
PATIENT: RHETT SILVA LOC: EN U#:[id number] AGE/SX: 54/M ROOM: RE01/14/[address]: Dr. Jairon Bernstein MD : 1970 BED: DIS: 01/14/2025 SPEC #: [id number] RECD: 01/14/25 12:11 STATUS: ELLEN MELISSA #: [id number] DEIDRA: 01/14/25 07:[address]: Jairon Bernstein DEPT: SURGICAL PATHOLOGY RECD BY: Dewayne Mckay ENTERED: 01/14/25 13:07 SP TYPE: EGD BIOPSY OT DR: Dr. Amilcar Wayne MD Tissues: A - Esophagus, NOS Procedures: Surgery Specimen Level IV HEADER OPERATION: EGD with biopsy PRE-OP DIAGNOSIS: History of Carmichael's esophagus TISSUE SUBMITTED: A- Gastroesophageal junction biopsy MICROSCOPIC DIAGNOSIS A. Gastroesophageal junction, biopsy: * Carmichael's esophagus, negative for dysplasia MICROSCOPIC DESCRIPTION Slides are reviewed. GROSS DESCRIPTION A. Received in fixative is one container labeled with the patient's name and designated Gastroesophageal junction biopsy The specimen consists of multiple irregular fragments of light rios soft tissue that in aggregate measure 0.9 x 0.3 x 0.2 cm. The specimen is totally submitted in one cassette. 01/14/2025 CPT:24976
--- NOTE | 2025-01-14 07:31 | PCM.PRE.AN2 ---
ASA Classification* ASA Classification ASA Classification: 3 Assessment & Plan Anesthesia* Anesthesia Assessment Anesthesia Assessment: Discussed sedation and/or anesthesia options, risks, benefits, and alternatives with patient/parents/legal guardian/POA. Questions invited. The patient/parents/legal guardian/POA seems to understand and agrees to proceed with anesthesia plan. Reviewed the physical assessment, medical history, allergy history and patient home medications list prior to surgery/procedure/anesthetic and documented any changes. Performed airway and anesthesia risk assessments. Anesthesia Type Anesthesia Type: MAC History Source History Obtained from:: Patient and Chart Anesthesia Focused Assessment* Temperature: 97.8 F Pulse Rate: 71 Blood Pressure: 165/83 Respiratory Rate: 16 Pulse Ox: 97 Oxygen Delivery Method: Room Air Airway Assessment Mouth opens: >3 cm Mallampati Score: II Teeth Condition: Intact and Caps/Crowns Focused Labs Anesthesia Preop lab: CBC WBC 8.7 K/mm3 (4.4-11.0) 10/22/24 09:56 10/22/24 RBC 5.39 M/mm3 (4.6-6.2) 10/22/24 09:56 10/22/24 Hgb 16.2 g/dL (13.0-16.5) 10/22/24 09:56 10/22/24 Hct 48.7 % (40-54) 10/22/24 09:56 10/22/24 Plt Count 339 K/mm3 (150-450) 10/22/24 09:56 10/22/24 CHEMISTRY Potassium 4.8 mmol/L (3.5-5.1) 10/22/24 09:56 10/22/24 Sodium 140 mmol/L (136-145) 10/22/24 09:56 10/22/24 Magnesium 2.0 mg/dL (1.6-2.6) 11/08/21 15:02 11/08/21 BUN 15 mg/dL (7-18) 10/22/24 09:56 10/22/24 Creatinine 1.34 mg/dL (0.70-1.30) H 10/22/24 09:56 10/22/24 Glucose 110 mg/dL (74-106) H 10/22/24 09:56 10/22/24 POC Glucose 166 mg/dL (74-106) H 01/14/25 06:52 01/14/25 TSH 0.93 uIU/mL (0.358-3.74) 11/08/21 15:02 11/08/21 COAG PT 12.4 SECONDS (11.7-14.9) 08/05/19 10:14 08/05/19 Pre-Assessment Diagnosis/Proposed Procedure Planned Operative Procedure(s): EGD Anesthesia History 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 When Was Last Pacemaker Check 201811/19/24 08:55 QUESTION #4 FULL TEXT: You/Your Family Experience fever (hyperthermia) with Anesthesia Last Oral Intake Last Oral intake: Last Oral Intake NPO since 05:30 01/14/25 06:52 Meds taken in AM with sips of water? 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 Female No 01/09/25 09:46 HX of Motion Sickness No 01/09/25 09:46 HX of N/V After Surgery No 01/09/25 09:46 Non-Smoker Yes 01/09/25 09:46 Duration of Surgery greater No 01/09/25 09:46 than 60 minutes Number of Risk Factors 1 01/09/25 09:46 PONV Score Low Risk 01/09/25 09:46 Height & Weight Height & Weight: Anesthesia: Height & Weight Height 5 ft 11 in 01/14/25 06:52 Weight: 128 kg 01/14/25 06:52 Body Mass Index (BMI) 39.3 01/14/25 06:52 Respiratory Assessment Respiratory Assessment - business applications analyst: Respiratory Tract Infection Hx - business applications analyst Hx Respiratory Tract Infection No 01/09/25 09:46 STOP Sleep Apnea STOP Sleep Apnea - business applications analyst: STOP Sleep Apnea - business applications analyst Hx Hypertension No 01/09/25 09:46 Hx Sleep Apnea Yes 01/09/25 09:46 CPAP Yes 01/09/25 09:46 BIPAP No 01/09/25 09:46 Do you snore loudly (louder than talking or can be heard Do you often feel tired/ fatigued/ sleepy during daytime? Has anyone observed you stop breathing during sleep? STOP Results Positive 01/09/25 09:46 QUESTION #5 FULL TEXT : Do you snore loudly (louder than talking or can be heard through closed doors)? 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 Specify any problems Hx of Preganancy in last 3 N/A 01/09/25 09:46 Months Nurse Filling Out Transfusion NBUCHER 01/09/25 09:46 & Questions: Date: 01/09/25 01/09/25 09:46 Time: 09:48 01/09/25 09:46 Patient unable to answer at this time (ie. confused, unrespo /Reproduction History /Reproductive History - business applications analyst: /Reproductive Hx- business applications analyst Hx Now No 01/09/25 09:46 Gestational Age (in weeks): EDC: Hx Hx Para Hx Section SAB No 01/09/25 09:46 Active Medications Active Medications: Current Medications Generic Name Dose Route Start Last Admin Trade Name Freq PRN Reason Stop Dose Admin Lactated Ringer's 1,000 mls @ 15 mls/hr 01/14/25 06:30 01/14/25 07:08 IV 15 mls/hr .Q48H JUVENTINO Administration PFSH Medical History Loss of hearing Diabetes CPAP (continuous positive airway pressure) dependence Sleep apnea History of stress test History of echocardiogram Cardiology follow-up encounter Former smoker GERD (gastroesophageal reflux disease) Pacemaker at end of battery life Syncope and collapse Presence of cardiac pacemaker Sinoatrial block Home Medications ?Medication ?Instructions ?Recorded ?Last Taken ?Type omeprazole 40 mg capsule,delayed See Rx Instructions .Route 04/12/23 Unknown Rx release .COMPLEX #90 caps metformin 500 mg tablet,extended 250 mg PO BID 11/26/24 Unknown History release 24 hr Allergy/AdvReac Type Severity Reaction Status Date / Time Sulfa (Sulfonamide Allergy Unknown Unknown Verified 01/09/25 09:45 Antibiotics) Family History Father Brain aneurysm Brother Multiple sclerosis Uncle CAD (coronary artery disease) Grandfather CAD (coronary artery disease) Grandfather CVA (cerebral vascular accident) Cancer Lung Grandmother Breast cancer Surgical History History of colonoscopy History of esophagogastroduodenoscopy (EGD) History of permanent cardiac pacemaker placement (~08/2020) History of permanent cardiac pacemaker placement (~07/2006) History of tonsillectomy and adenoidectomy Social History Smoking Status: Former smoker alcohol intake: never substance use type: does not use Addt'l Information Additional Findings: EKG NSR Review of Systems (Anesthesia) ROS Narrative System reviewed and no additional complaints, except as documented. Physical Exam Const alert and oriented x3 Orientation / Consciousness: awake Chest Chest: pacemaker Cardio regular rate and regular rhythm Neuro oriented x3 and moves all extremities
--- NOTE | 2025-01-14 07:53 | OP.EGD_ITS ---
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 Refer to note in patient chart for documentation of history and physical. Complications: No immediate complications. Estimated blood loss: Minimal. Procedure: Pre-Anesthesia Assessment: - Prior to the procedure, a History and Physical was performed, and patient medications and allergies were reviewed. The patient's tolerance of previous anesthesia was also reviewed. The risks and benefits of the procedure and the sedation options and risks were discussed with the patient. All questions were answered, and informed consent was obtained. Prior Anticoagulants: The patient has taken no anticoagulant or antiplatelet agents. After reviewing the risks and benefits, the patient was deemed in satisfactory condition to undergo the procedure. After obtaining informed consent, the endoscope was passed under direct vision. Throughout the procedure, the patient's blood pressure, pulse, and oxygen saturations were monitored continuously. The Endoscope was introduced through the mouth, and advanced to the third part of duodenum. The upper GI endoscopy was accomplished without difficulty. The patient tolerated the procedure well. Scope In: 7:44:50 AM Scope Out: 7:48:27 AM Total Procedure Duration Time 0 hours 3 minutes 37 seconds Findings: A large amount of food (residue) was found in the entire examined stomach. 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 Mucosa was biopsied with a cold forceps for histology in 4 quadrants at the gastroesophageal junction. One specimen bottle was sent to pathology. The examined duodenum was normal. Impression: - A large amount of food (residue) in the stomach. - Esophageal mucosal changes secondary to established short-segment Carmichael's disease. Biopsied. - Normal examined duodenum. Recommendation: - Discharge patient to home. - Resume previous diet. - Continue present medications. - Await pathology results. - Repeat upper endoscopy in 3 years for surveillance. Procedure Code(s): --- Professional --- 44798, Esophagogastroduodenoscopy, flexible, transoral; with biopsy, single or multiple Diagnosis Code(s): --- Professional --- K22.70, Carmichael's esophagus without dysplasia CPT copyright 2021 [employer]. All rights reserved. The codes documented in this report are preliminary and upon medical biller coder review may be revised to meet current compliance requirements. Jairon Bernstein MD 01/14/2025 7:53:11 AM This report has been signed electronically. Number of Addenda: 0 Note Initiated On: 01/14/2025 7:32 AM
--- NOTE | 2025-01-14 07:53 | OP.CCLET_ITS ---
01/14/2025 Amilcar Wayne [address] [place] [address] Re : Upper GI endoscopy procedure for Jamel Wells Dear Dr. Wayne This procedure was performed on Tuesday, January 14, 2025. My impressions and recommendations are as follows: Impressions : - A large amount of food (residue) in the stomach. - Esophageal mucosal changes secondary to established short-segment Carmichael's disease. Biopsied. - Normal examined duodenum. Recommendations : - Discharge patient to home. - Resume previous diet. - Continue present medications. - Await pathology results. - Repeat upper endoscopy in 3 years for surveillance. My findings are described in the full procedure note, which is enclosed. If I can be of further assistance, please feel free to contact me at Doctor phone number(s): , Work: . Sincerely, Jairon Bernstein MD 01/14/2025 7:53:11 AM This report has been signed electronically.
--- NOTE | 2025-01-14 08:00 | PCM.POST.ANE ---
Anesthesia: Postop Eval I Current Vital Signs Temperature: 97.8 F Pulse Rate: 67 Blood Pressure: 130/65 Respiratory Rate: 14 Pulse Ox: 94 Oxygen Delivery Method: Room Air Assessment Airway patent: Yes Spontaneous unlabored respirations: Yes Mental status: Asleep nausea: No Vomiting: No Anesthesia Complication: No Fluid Hydration Crystalloid volume administer (ml): 300 Total IV fluid infused: 300 Progress Note Anesthesia document: Postop Eval 1 completed: Yes
--- NOTE | 2025-01-14 08:29 | PCM.POSTANE2 ---
Anesthesia Postop Eval I Sum Postop Eval Completion status Anesthesia document: Postop Eval 1 completed: Yes Anesthesia Postop Eval I Summary Anesthesia Postop Eval I Summary: Anesthesia Postop Eval I: Assessment Summary Airway patent Yes 01/14/25 08:01 [email or web address] Spontaneous unlabored Yes 01/14/25 08:01 [email or web address] respirations Mental status Asleep 01/14/25 08:01 [email or web address] nausea No 01/14/25 08:01 [email or web address] Vomiting No 01/14/25 08:01 [email or web address] Anesthesia Postop Eval I: Fluid Summary Crystalloid volume administer 300 01/14/25 08:01 [email or web address] (ml) Colloids volume administered ( ml) Blood Product volume administered (ml) Total IV fluid infused 300 01/14/25 08:01 [email or web address] Anesthesia Postop Eval I: Summary Notes Anesthesia Complication No 01/14/25 08:01 [email or web address] Anesthesia Complication Comment: Post-operative progress note Anesthesia: Postop Eval II Evaluation Mental status: Awake and Calm Pain Level: 0 nausea: No Vomiting: No Complications Anesthesia Complication: No
== END 2025-01-14 08:28 | disposition home or self-care (01) ==
LOC: EN 06:15 → AC 06:15
PROVIDERS: PCP Family Medicine; Referring Provider Family Medicine; Visit Provider Surgery
PROC: 0DJ08ZZ Inspection of Upper Intestinal Tract, Via Natural or Artificial Opening Endoscopic (ICD-10-PCS; CPT 43235; principal; 2025-01-14 07:25)
DX: K22.70 Barrett's esophagus without dysplasia (principal); Z87.891 Personal history of nicotine dependence; Z95.0 Presence of cardiac pacemaker
CPT/HCPCS: 43239; 82962; 88305; J2405

== ENCOUNTER → 2025-02-14 | Outpatient (CLI) | payer OTHER, SELFPAY ==
--- NOTE | 2025-02-14 07:43 | CT_ITS ---
PROCEDURE: CHEST WITHOUT CONTRAST 02/14/2025 REASON FOR EXAM: HISTORY OF TOBACCO USE AND LUNG NODULE, DUE FOR SCAN 02/2025 TECHNIQUE: Chest CT without contrast. Coronal and Sagittal reconstruction series were provided. One or more dose reduction techniques were used (e.g., Automated exposure control, adjustment of the mA and/or kV according to patient size, use of iterative reconstruction technique RADIATION DOSE SUMMARY: CTDlvol: 19.86 mGy DLP: 654 mGycm COMPARISON: 08/20/2024. FINDINGS: Unchanged multiple small scattered bilateral pulmonary nodules. The largest is in the peripheral lateral aspect of the left upper lobe and measures 7 mm. Possibly faint calcifications are seen. Unchanged coronary artery calcifications. Unchanged mildly prominent mediastinal and right hilar lymph nodes with the largest measuring 1.2 cm. Unchanged hepatomegaly with hepatic steatosis. Normal unenhanced main pulmonary artery and right and left pulmonary arteries. Normal bilateral peripheral pulmonary arteries. Normal thoracic aorta and visualized great vessels. There is no demonstrated aortic aneurysm. Normal heart and pericardium. Normal visualized trachea and bronchi. Normal pleura. Normal remaining visualized upper abdomen. Unchanged diffuse spondylosis. Unchanged CT/Chest without Contrast IMPRESSION: 1. Lung-RADS category 3 - Continue screening with LDCT in 6 months. 2. Coronary artery calcification (CAC) is is present 3. Unchanged multiple small scattered bilateral pulmonary nodules. The largest is in the peripheral lateral aspect of the left upper lobe and measures 7 mm. Possibly faint calcifications are seen. 4. Unchanged coronary artery calcifications. 5. Unchanged mildly prominent mediastinal and right hilar lymph nodes with the largest measuring 1.2 cm. 6. Unchanged hepatomegaly with hepatic steatosis. Reading [facility] [id number]
--- OUTSIDE RECORDS SUMMARY | 2025-02-14 08:04 | XMS RPT_ITS | CCD ---
Author Organization [facility] Care Team Providers Care Integrated Logistics Operations Manager Name Role Phone Dr. Amilcar Wayne Primary Care Provider [phone] Dr. Jerry Dozier Attending Provider Dr. Jerry Dozier Referring Provider Dr. Amilcar Wayne Referring Provider [phone] Jona CHROME PLATER, ALYSE Bishop Attending Provider Tone IRVIN, Dr. Amilcar Zhang Primary Care Provider Tone IRVIN, Dr. Amilcar Zhang Attending Provider Tone IRVIN, Dr. Amilcar Zhang Referring Provider Tasia IRVIN, Dr. Edwards Attending Provider Tasia IRVIN, Dr. Edwards Referring Provider [phone] Day IRVIN, Dr. De La O Attending Provider [phone] Day IRVIN, Dr. De La O Other Provider Amilcar Wayne Primary Care Unavailable Tasia, Casmalia Attending Unavailable Tasia, Jerry Referring Unavailable Jairon Bernstein Consulting Unavailable Jairon Bernstein Attending Unavailable Amilcar Wayne Referring Unavailable Amilcar Wayne Primary Care Unavailable Amilcar Wayne Primary Care Unavailable Tasia, Casmalia Attending Unavailable Tasia, Jerry Referring Unavailable Amilcar Wayne Primary Care Unavailable Tasia, Casmalia Attending Unavailable Tasia, Casmalia Referring Unavailable Tasia, Jerry Attending Unavailable Amilcar Wayne Referring Unavailable Amilcar Wayne Primary Care Unavailable Tasia, Jerry Attending Unavailable Tasia, Casmalia Referring Unavailable Amilcar Wayne Primary Care Unavailable Jairon Bernstein Attending Unavailable Amilcar Wayne Referring Unavailable Amilcar Wayne Primary Care Unavailable Amilcar Wayne Primary Care Unavailable Amilcar Wayne Attending Unavailable Amilcar Wayne Referring Unavailable Amilcar Wayne Attending Unavailable Amilcar Wayne Referring Unavailable Amilcar Wayne Primary Care Unavailable Jerry Dozier Attending Unavailable Jerry Dozier Referring Unavailable Amilcar Wayne Primary Care Unavailable Jerry Dozier Attending Unavailable Amilcar Wayne Primary Care Unavailable Jairon Bernstein Attending Unavailable Amilcar Wayne Referring Unavailable Amilcar Wayne Primary Care Unavailable Allergies Allergy Classification Reported Allergen(s) Allergy Type Date of Onset Reaction(s) Facility (2 sources) Sulfonamides (Antibiotic) Allergy to substance 4 Unknown [facility] (1 source) Sulfonamides (Antibiotic) Drug allergy (disorder) 5 [facility] Repository Medications Current Medications Medication Drug Class(es) Dates Sig (Normalized) Sig (Original) 24 hr metFORMIN hydrochloride 500 mg extended release oral tablet (1 source) Biguanide Start: 11-26-2024 take 2 tablets by mouth twice daily Metformin 500 mg tablet extended release 24 hr Active 250 mg PO TWICE A DAY November 26, 2024 12:00am omeprazole 40 mg delayed release oral capsule (18 sources) Proton Pump Inhibitor Start: 01-14-2022 End: 04-12-2023 take 1 tablet by mouth once daily Omeprazole 40 mg capsule,delayed release(DR/EC) Active 0 .ROUTE .COMPLEX 90 April 12, 2023 6:07am TAKE 1 TABLET BY MOUTH DAILY Start: 08-05-2019 End: 01-14-2022 take 1 capsule by mouth once daily Omeprazole 20 mg capsule,delayed release(DR/EC) Discontinued 20 mg PO DAILY December 10, 2021 12:59pm January 14, 2022 9:05am Completed/Discontinued Medications Medication Drug Class(es) Dates Sig (Normalized) Sig (Original) ciprofloxacin 250 mg oral tablet (8 sources) Quinolone Antimicrobial Start: 08-05-2019 End: 01-20-2020 take 1 tablet by mouth twice daily Ciprofloxacin Hcl 250 mg tablet Discontinued 250 mg PO TWICE A DAY August 05, 2019 3:33pm January 20, 2020 10:19am X 3 days Problems Active Problems Problem Classification Problem Date Documented Da te Episodic/Chronic Conduction disorders (19 sources) Sinoatrial block; Translations: [Other specified heart block] Onset: 5 01-30-2018 Chronic Comment on above: Gen change 08/12/19 Diabetes mellitus with complications (1 source) Type 2 diabetes mellitus with unspecified complications; Translations: [Type 2 diabetes mellitus with unspecified complications] Onset: Chronic Esophageal disorders (3 sources) Gastroesophageal reflux disease; Translations: [Gastro-esophageal reflux disease without esophagitis] Onset: 5 12-10-2021 Chronic Other gastrointestinal disorders (2 sources) History of Carmichael's esophagus; Translations: [Personal history of other diseases of the digestive system] 12-24-2024 Episodic Syncope (5 sources) Syncope and collapse; Translations: [Syncope and collapse] 01-30-2018 Episodic Past or Other Problems Problem Classification Problem Date Documented Da te Episodic/Chronic Other screening for suspected conditions (not mental disorders or infectious disease) (3 sources) Patient encounter status; Translations: [Encounter for screening for malignant neoplasm of intestinal tract, unspecified] Onset: 09-20-2024 12-10-2021 Episodic Results Test Name Value Interpretation Reference Range Facility Bedside Glucoseon 01-14-2025 FINGERSTICK GLU 166 mg/dL High 74-106 [facility] Comment on above: Result Comment: ANGELINA WRIGHT OF PATIENT CARE PER NURSING PROTOCOL Performed By: #### L 501.080 #### [facility] [address] [place], [address] EGD Reporton 01-14-2025 EGD Report [facility] Medical Records Department [address] [place] [address] EGD Report MR#: [id number] Acct: [id number] Name: RHETT WELLS Rep #: [id number] : 1970 54 From: Jairon Bernstein MD PCP: Dr. Amilcar Wayne MD Status:[facility] Patient Name: Rhett Wells Procedure Date: 01/14/2025 7:32 AM Date of : 1970 Age: 54 Procedure: Upper GI endoscopy Indications: Surveillance for malignancy due to personal history of Carmichael's esophagus Providers: Jairon Bernstein MD Referring MD: Amilcar Wayne Medicines: Propofol per Anesthesia Patient Profile: This is a 54 year old male. Refer to note in patient chart for documentation of history and physical. Complications: No immediate complications. Estimated blood loss: Minimal. Procedure: Pre-Anesthesia Assessment: - Prior to the procedure, a History and Physical was performed, and patient medications and allergies were reviewed. The patient's tolerance of previous anesthesia was also reviewed. The risks and benefits of the procedure and the sedation options and risks were discussed with the patient. All questions were answered, and informed consent was obtained. Prior Anticoagulants: The patient has taken no anticoagulant or antiplatelet agents. After reviewing the risks and benefits, the patient was deemed in satisfactory condition to undergo the procedure. After obtaining informed consent, the endoscope was passed under direct vision. Throughout the procedure, the patient's blood pressure, pulse, and oxygen saturations were monitored continuously. The Endoscope was introduced through the mouth, and advanced to the third part of duodenum. The upper GI endoscopy was accomplished without difficulty. The patient tolerated the procedure well. Scope In: 7:44:50 AM Scope Out: 7:48:27 AM Total Procedure Duration Time 0 hours 3 minutes 37 seconds Findings: A large amount of food (residue) was found in the entire examined stomach. 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 Mucosa was biopsied with a cold forceps for histology in 4 quadrants at the gastroesophageal junction. One specimen bottle was sent to pathology. The examined duodenum was normal. Impression: - A large amount of food (residue) in the stomach. - Esophageal mucosal changes secondary to established short-segment Carmichael's disease. Biopsied. - Normal examined duodenum. Recommendation: - Discharge patient to home. - Resume previous diet. - Continue present medications. - Await pathology results. - Repeat upper endoscopy in 3 years for surveillance. Procedure Code(s): --- Professional --- 66221, Esophagogastroduoden oscopy, flexible, transoral; with biopsy, single or multiple Diagnosis Code(s): --- Professional --- K22.70, Carmichael's esophagus without dysplasia CPT copyright 2021 [employer]. All rights reserved. The codes documented in this report are preliminary and upon beamer operator review may be revised to meet current compliance requirements. Jairon Bernstein MD 01/14/2025 7:53:11 AM This report has been signed electronically. Number of Addenda: 0 Note Initiated On: 01/14/2025 7:32 AM 01/14/25 0753 Date Jairon Bernstein MD Cosigner Signature: Date (if indicated) CC: Dr. Jairon Bernstein MD; Dr. Amilcar Wayne MD Date Dictated: 01/14/25 0732 Date Transcribed: Yarn Dyer: Signed [facility] Gl[facility] deOrdered By: Jairon Bernstein on 01-14-2025 Glucose [Mass/Vol] 166 mg/dL High 74-106 [facility] Comment on above: MANAGEMENT OF PATIEN T CARE PER NURSING PROTOCOL [facility] Medical Records Department [address] [place] [address] Anesthesia Postop Eval I 01/14/25 0800 MR#: [id number] Acct: [id number] Name: RHETT WELLS Rep #: [id number] : 1970 54 From: Oscar Guzman PCP: Dr. Amilcar Wayne MD Status:REG SDC Y Race: C Location: [place] [address] Anesthesia: Postop Eval I Current Vital Signs Temperature: 97.8 F Pulse Rate: 67 Blood Pressure: 130/65 Respiratory Rate: 14 Pulse Ox: 94 Oxygen Delivery Method: Room Air Assessment Airway patent: Yes Spontaneous unlabored respirations: Yes Mental status: Asleep nausea: No Vomiting: No Anesthesia Complication: No Fluid Hydration Crystalloid volume administer (ml): 300 Total IV fluid infused: 300 Progress Note Anesthesia document: Postop Eval 1 completed: Yes 01/14/25800 Date Oscar Sahu Signature: Date CC: Signed Normal [facility] MR/EYALPTGY0ph 01-14-2025 MR/POSTOPAN2 [facility] Medical Records Department [address] [place] [address] Anesthesia Postop Eval II 01/14/25828 MR#: [id number] Acct: [id number] Name: RHETT WELLS Rep #: [id number] : 1970 54 From: Joey Lynn MD PCP: Dr. Amilcar Wayne MD Status:[facility] Y Race: C Location: [place] Anesthesia Postop Eval I Sum Postop Eval Completion status Anesthesia document: Postop Eval 1 completed: Yes Anesthesia Postop Eval I Summary Anesthesia Postop Eval I Summary: Anesthesia Postop Eval I: Assessment Summary Airway patent Yes 01/14/25 08:01 [email or web address] Spontaneous unlabored Yes 01/14/25 08:01 [email or web address] respirations Mental status Asleep 01/14/25 08:01 [email or web address] nausea No 01/14/25 08:01 [email or web address] Vomiting No 01/14/25 08:01 [email or web address] Anesthesia Postop Eval I: Fluid Summary Crystalloid volume administer 300 01/14/25 08:01 [email or web address] (ml) Colloids volume administered ( ml) Blood Product volume administered (ml) Total IV fluid infused 300 01/14/25 08:01 [email or web address] Anesthesia Postop Eval I: Summary Notes Anesthesia Complication No 01/14/25 08:01 [email or web address] Anesthesia Complication Comment: Post-operative progress note Anesthesia: Postop Eval II Evaluation Mental status: Awake and Calm Pain Level: 0 nausea: No Vomiting: No Complications Anesthesia Complication: No 01/14/25828 Date Joey Sahu Signature: Date CC: Signed Normal [facility] Surgery Specimen Level Chuck 01-14-2025 Surgery Specimen Level IV Patient Age/Sex Location Account Attending Physician RHETT WELLS 54/M EN [id number] Dr. Jairon Bernstein MD Specimen: Received: 01/14/25 Status: [place] Pizarro Num: [id number] Spec Type: EGD BIOPSY Subm Dr: Dr. Jairon Bernstein MD HEADER OPERATION: EGD with biopsy PRE-OP DIAGNOSIS: History of Carmichael's esophagus TISSUE SUBMITTED: A- Gastroesophageal junction biopsy MICROSCOPIC DIAGNOSIS A. Gastroesophageal junction, biopsy: * Carmichael's esophagus, negative for dysplasia MICROSCOPIC DESCRIPTION Slides are reviewed. GROSS DESCRIPTION A. Received in fixative is one container labeled with the patient's name and designated Gastroesophageal junction biopsy The specimen consists of multiple irregular fragments of light rios soft tissue that in aggregate measure 0.9 x 0.3 x 0.2 cm. The specimen is totally submitted in one cassette. 01/14/2025 CPT:49529 Patient Age/Sex Location Account Attending Physician RHETT WELLS 54/M EN [id number] Dr. Jaiorn Bernstein MD Signed (signature on file) Dr. Sarah Figueroa DO 01/15/25 1117 Normal [facility] Comment on above: Performed By: #### P SUIV #### [facility] [address] [place], [place], [address] MR/PATMeño 01-09-2025 MR/PAT.[facility] Medical Records Department [address] [place] [address] PAT - Anesthesia 01/09/25 1503 MR#: [id number] Acct: [id number] Name: RHETT WELLS Rep #: [id number] : 1970 54 From: Arvin Acuña MD PCP: Dr. 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 When Was Last Pacemaker Check 2019 11/19/24 08:55 QUESTION #4 FULL TEXT: You/Your Family Experience fever (hyperthermia) with Anesthesia Last Oral Intake Last Oral intake: Last Oral Intake NPO since Meds taken in AM with sips of water? 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 Female No 01/09/25 09:46 HX of Motion Sickness No 01/09/25 09:46 HX of N/V After Surgery No 01/09/25 09:46 Non-Smoker Yes 01/09/25 09:46 Duration of Surgery greater No 01/09/25 09:46 than 60 minutes Number of Risk Factors 1 01/09/25 09:46 PONV Score Low Risk 01/09/25 09:46 Height Weight Height Weight: Anesthesia: Height Weight Height 5 ft 11 in 12/24/24 12:58 Respiratory Assessment Respiratory Assessment - print machine operator: Respiratory Tract Infection Hx - print machine operator Hx Respiratory Tract Infection No 01/09/25 09:46 STOP Sleep Apnea STOP Sleep Apnea - print machine operator: STOP Sleep Apnea - print machine operator Hx Hypertension No 01/09/25 09:46 Hx Sleep Apnea Yes 01/09/25 09:46 CPAP Yes 01/09/25 09:46 BIPAP No 01/09/25 09:46 Do you snore loudly (louder than talking or can be heard Do you often feel tired/ fatigued/ sleepy during daytime? Has anyone observed you stop breathing during sleep? STOP Results Positive 01/09/25 09:46 QUESTION #5 FULL TEXT : Do you snore loudly (louder than talking or can be heard through closed doors)? 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 Specify any problems Hx of Preganancy in last 3 N/A 01/09/25 09:46 Months Nurse Filling Out Transfusion NBUCHER 05/08/25 09:46 Questions: Date: 01/09/25 01/09/25 09:46 Time: 09:48 01/09/25 09:46 Patient unable to answer at this time (ie. confused, unrespo /Reproducti on History /Reproducti ve History - print machine operator: /Reproducti ve Hx- print machine operator Hx Now No 01/09/25 09:46 Gestational Age (in weeks): EDC: Hx Hx Para Hx Section SAB No 01/09/25 09:46 [facility] Medical History (Updated 01/09/25 @ 09:52 by Gissell Riggs) Loss of hearing Diabetes CPAP (continuous positive airway pressure) dependence Sleep apnea History of stress test History of echocardiogram Cardiology follow-up encounter Former smoker GERD (gastroesophageal reflux disease) Pacemaker at end of battery life Syncope and collapse Presence of cardiac pacemaker Sinoatrial block Home Medications ???Medication ???Instructions ???Recorded ???Last Taken ???Type omeprazole 40 mg capsule,delayed See Rx Instructions .Route 3 Unknown Rx release .COMPLEX #90 caps metformin 500 mg tablet,extended 250 mg PO BID 11/26/24 Unknown His tory release 24 hr Allergy/AdvReac Type Severity Reaction Status Date / Time Sulfa (Sulfonamide Allergy Unknown Unknown Verified 01/09/25 09:45 Antibiotics) Family History (Reviewed 12/24/24 @ 12:58 (more content not included)... Normal [facility] Surgery Visit Reporton 12-24 Surgery Visit Report [facility] [address] [place] [address] OFFICE VISIT Date of Service: 12/24/24 MR#: [id number] Acct: [id number] Name: RHETT WELLS Rep #: [id number] : 1970 Provider: Dr. Jairon mendoza MD Age/Sex: 54/M Location: [facility] Status: Signed Intake Vital Signs 10/09/23 10:55 11/19/24 08:55 11/26/24 11:16 12/24/24 12:58 Height 5 ft 11 in 5 ft 11 in 5 ft 11 in 5 ft 11 in Weight: 283 lb 284 lb 8 oz BMI 39.4 39.6 BP 150/79 H 144/76 H Blood Pressure Location Lt brachial Rt brachial Position Sitting Sitting Respiration 16 18 Pulse 67 73 Pulse Source Monitor Monitor Temp 97.2 F L Temp Source Temporal Pulse Oximetry (%) 100 Oxygen Delivery Method room air Intake Visit Reasons: RECALL EGD Chief Complaint: recall EGD Accompanied by: Is patient in pain?: No Allergies Sulfa (Sulfonamide Antibiotics) Allergy (Unknown, Verified 11/26/24 11:17) Unknown Medications ???Medication ???Instructions ???Recorded ???Confirmed ???Type omeprazole 40 mg capsule,delayed See Rx Instructions .Route 3 12/24/24 Rx release .COMPLEX #90 caps metformin 500 mg tablet,extended 250 mg PO BID 11/26/24 12/24/24 Hi story release 24 hr PFSH Medical History Former smoker GERD (gastroesophageal reflux disease) Pacemaker at end of battery life Syncope and collapse Presence of cardiac pacemaker Sinoatrial block Surgical History History of permanent cardiac pacemaker placement ( 08/2020) History of permanent cardiac pacemaker placement ( 07/2006) History of tonsillectomy and adenoidectomy Family History Father Brain aneurysm Brother Multiple sclerosis Uncle CAD (coronary artery disease) Grandfather CAD (coronary artery disease) Grandfather CVA (cerebral vascular accident) Cancer Lung Grandmother Breast cancer Social History Smoking Status: Former smoker alcohol intake: never substance use type: does not use HPI HPI HPI: Patient is a 54-year-old male here for EGD. 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 He was ordered to follow-up in 3 years for repeat. He denies any abdominal pain at this time. ROS General General: No weight change, appetite, fatigue, colon cancer, breast cancer or weakness HEENT HEENT: No difficulty swallowing, eye injury, eye surgery, swollen glands or hoarseness Endo Endocrine: No thyroid disease, diabetes mellitus, thyroid cancer, Hair loss, heat intolerance or cold intolerance Skin Skin: No rash or changing moles Musc Musculoskeletal: No back problems, arthritis, rheumatoid arthritis, gout or joint pain Cardio Cardiovascular: Yes pacemaker; No murmur, heart disease, atrial fibrillation, high blood pressure, heart attack, heart stent, palpitations, shortness of breath with exertion or chest pain Psych Psychiatric: No depression, anxiety or hearing voices Resp Respiratory: No shortness of breath, Yes sleep apnea, No cough, No COPD, No asthma, No emphysema and No wheezing Gastro Gastrointestinal: No abdominal pain, No nausea or vomiting, No diarrhea, No constipation, No blood in stool, Yes acid reflux, No hemorrhoids, No ulcers, No gallbladder problem and No black,tarry stools Fernando Hematologic: No blood thinners, No blood disorders, No bleeding, No anemia and No blood clots Neuro Neurologic: No numbness, No tingling and No weakness Exam Const General: cooperative Orientation: alert and oriented x3 HENMT Head: normal to inspection Neck Neck: normal visual inspection and full ROM Chest Chest palpation inspection: normal inspection of the chest Resp Effort Inspection: normal respiratory effort Auscultation: clear to auscultation bilaterally Cardio Rate: regular rate Rhythm: regular rhythm GI Inspection: non-distended Palpation: soft and nontender Skin General: no rashes or lesions noted Neuro General: patient alert and patient oriented x3 Extrem General: full ROM Psych Appearance: grossly normal Mental Status: mental status grossly normal Assessment and Plan Assessment and Plan (1) History of Carmichael's esophagus: Status: Acute Plan: Patient has a history of Carmichael's and requires surveillance EGD. I discussed this with him in detail. I explained endoscopy in detail to the patient. I explained the risks including but not limited to stroke or heart attack with anesthesia, perforation of the GI tract, bleeding, infection. I explained that any of these could necessitate further emergency (more content not included)... Normal [facility] Cardiology Visit Reporton Cardiology Visit Report [facility] [address] [place] [address] OFFICE VISIT Date of Service: 11/26/24 MR#: [id number] Acct: [id number] Name: RHETT WELLS Rep #: [id number] : 1970 Provider: Dr. Jerry Dozier MD Age/Sex: 54/M [facility] [facility] Status: Signed HPI HPI History of Present Illness Details: RHETT WELLS, is a 54 year old white male who presents to the office today for for outpatient cardiovascular follow-up visit. He has a history of underlying syncope, sinus node dysfunction, and permanent pacemaker placement. From a cardiac standpoint, the patient is doing well. He denies any palpitations, chest pain, pressure or heaviness. He denies SOB, Orthopnea, and PND. He does not have bleeding issues; no blood in urine, stool or nosebleeds. He denies any decrease in energy level, myalgias, or claudication. He does not have edema, or sudden weight gain. He denies dizziness, lightheadedness, syncopal or near syncopal episodes, and headaches. He is in the process of being evaluated for WOOD. Intake Vital Signs 10/09/23 10:55 11/19/24 08:55 11/26/24 11:16 Height 5 ft 11 in 5 ft 11 in 5 ft 11 in Weight: 283 lb BMI 39.4 BP 150/79 H Blood Pressure Location Lt brachial Position Sitting Respiration 16 Pulse 67 Pulse Source Monitor Intake Visit Reasons: 1 Y FU Annnual in-clinic PPM f/u @ 11 Sign Wirer Required: No Accompanied by: Significant Other Is patient in pain?: No Allergies Sulfa (Sulfonamide Antibiotics) Allergy (Unknown, Verified 11/26/24 11:17) Unknown Medications ???Medication ???Instructions ???Recorded ???Confirmed ???Type omeprazole 40 mg capsule,delayed See Rx Instructions .Route 3 11/26/24 Rx release .COMPLEX #90 caps metformin 500 mg tablet,extended 250 mg PO BID 11/26/24 11/26/24 Hi story release 24 hr Have you fallen in the past year?: No PFSH Medical History Former smoker GERD (gastroesophageal reflux disease) Pacemaker at end of battery life Syncope and collapse Presence of cardiac pacemaker Sinoatrial block Surgical History History of permanent cardiac pacemaker placement ( 08/2020) History of permanent cardiac pacemaker placement ( 07/2006) History of tonsillectomy and adenoidectomy Family History Father Brain aneurysm Brother Multiple sclerosis Uncle CAD (coronary artery disease) Grandfather CAD (coronary artery disease) Grandfather CVA (cerebral vascular accident) Cancer Lung Grandmother Breast cancer Social History Smoking Status: Former smoker alcohol intake: never substance use type: does not use ROS Const Const: Negative for fatigue, weakness, headache(s), daytime sleepiness or difficulty sleeping ENT ENT: Negative for headache(s), dizziness or Nosebleed/epistaxis Cardio Chest Pain: No Edema: None Resp Respiratory: Negative for SOB with activity, SOB at rest, SOB orthopnea SOB lying down or Cough GI GI: Negative nausea, vomiting or heartburn Neuro Neuro: Negative for dizziness, lightheadedness, near syncope, headache(s) or weakness Endo Endo: Negative for fatigue Cardiology Exam Const Appearance: cooperative, healthy appearing, comfortable, no acute distress, well developed and well groomed Nutritional Appearance: well nourished and obese Orientation: alert, awake and oriented x3 Head Head: normal to inspection, normocephalic and atraumatic Ears: hearing grossly normal bilaterally Nose: external nose normal Face and Sinus: face symmetric Eyes Eyelids: eyelids normal Conjunctivae: conjunctivae normal Pupils: PERRL EOM: EOM intact bilaterally Neck Neck: normal visual inspection, full ROM and no JVD Carotids: normal carotid upstroke Chest Chest inspection: normal inspection of the chest, symmetric chest movement and normal respiratory effort; Negative cough Auscultation: Bilateral: Clear to Auscultation Cardio Rate: regular rate Rhythm: regular rhythm Heart sounds: S1 normal and S2 normal; Negative rub, gallop or murmur GI GI: normal to inspection, soft and obese Neuro General: patient alert, patient awake, patient oriented x3, gait normal and moves all extremities Skin Skin: no rashes or lesions noted Extremities Pulses: Normal: Right Posterior Tibial Pulse, Left Posterior Tibial Pulse, Right Radial Pulse and Left Radial Pulse Lower Extremity Edema: None: Bilateral Psych Psychological: normal affect Supplemental Info Supplemental Information Echocardiogram 11/14/2023: Interpretation Summary Normal LV size. Left ventricular systolic (more content not included)... Normal [facility] Pacemaker Checkon 11-26-2024 Pacemaker Check [facility] [address] [place] [address] Pacemaker Check Date of Service: 11/26/241424 MR#: [id number] Acct: [id number] Name: RHETT WELLS Rep #: [id number] : 1970 From: Meeta Doe Age/Sex: 54/M [place] [facility] [place] S[place] Billing Codes PM Device Codes: 67007 PM Dev Prog Eval, Single Assessment and Plan Assessment and Plan (1) Presence of cardiac pacemaker: Status: Chronic Comment: Gen change 08/12/19 (2) Sinoatrial block: Status: Chronic 11/26/24 1425 Date Meeta Gallowayigner Signature: Date (if applicable) CC: Normal [facility] Absolute lymphocyte countOrd ered By: Amilcar Wayne on 10-22-2024 Lymphocytes Auto (Unsp spec) [#/Vol] 1.73 10*3/uL 0.83-4.51 [facility] Absolute neutrophil countOrd ered By: Amilcar Wayne on 10-22-2024 Neutrophils (Bld) [#/Vol] 5.9 10*3/uL 2.0-7.7 [facility] Albumin to globulin ratioOrd ered By: Amilcar Wayne on 10-22-2024 Albumin/Globulin [Mass ratio] 1.0 {ratio} 0.9-2.4 [facility] Automated lymphocyte count a s percentage of total leukocytesOrdered By: Amilcar Wayne on 10-22-2024 Lymphocytes/100 WBC Auto (Unsp spec) 19.9 % - [facility] Basophil percentageOrdered B y: Amilcar Purvisjessica on 10-22-2024 Basophils/100 WBC (Bld) 0.7 % 0-1 [facility] Bilirubin, totalOrdered By: Amilcar Orolane on 10-22-2024 Bilirubin [Mass/Vol] 0.40 mg/dL 0.20-1.00 [facility] Comment on above: For patients on eltr ombopag therapy, use of Dimension Falcon TBIL is not recommended. Blood urea nitrogen (BUN)/cr eatinine ratioOrdered By: Amilcar Wayne on 10-22-2024 Urea nitrogen/Creatinine [Mass ratio] 11.2 mg/mg 10- [facility] CBC W/Diff, Automatedon 10-05 Absolute Lymph 1.73 X10 3/uL Normal 0.83-4.51 [facility] Comment on above: Order Comment: Order Date: 10/22/24 Order Info: 0184-1 - CBCD Performed By: #### L 502.0250, L100.0100, L500.4100, L500.4050, L501.9985 #### [facility] [address] [place], [address] Absolute Neut 5.9 X10 3/uL Normal 2.0-7.7 [facility] Comment on above: Order Comment: Order Date: 10/22/24 Order Info: 0184-1 - CBCD Performed By: #### L 502.0250, L100.0100, L500.4100, L500.4050, L501.9985 #### [facility] [address] [place], [address] Basophils/100 WBC (Bld) 0.7 % Normal 0-1 [facility] Comment on above: Order Comment: Order Date: 10/22/24 Order Info: 0184-1 - CBCD Performed By: #### L 502.0250, L100.0100, L500.4100, L500.4050, L501.9985 #### [facility] [address] [place], [address] Eosinophils/100 WBC (Bld) 2.0 % Normal 0-5 [facility] Comment on above: Order Comment: Order Date: 10/22/24 Order Info: 0184-1 - CBCD Performed By: #### L 502.0250, L100.0100, L500.4100, L500.4050, L501.9985 #### [facility] [address] [place], [address] Erythrocyte distribution width (RBC) [Ratio] 13.1 % Normal 11.6-14.6 [facility] Comment on above: Order Comment: Order Date: 10/22/24 Order Info: 0184-1 - CBCD Performed By: #### L 502.0250, L100.0100, L500.4100, L500.4050, L501.9985 #### [facility] [address] [place], [address] Hematocrit (Bld) [Volume fraction] 48.7 % Normal 40-54 [facility] Comment on above: Order Comment: Order Date: 10/22/24 Order Info: 0184-1 - CBCD Performed By: #### L 502.0250, L100.0100, L500.4100, L500.4050, L501.9985 #### [facility] [address] [place], [address] Hemoglobin (Bld) [Mass/Vol] 16.2 g/dL Normal 13.0-16.5 [facility] Comment on above: Order Comment: Order Date: 10/22/24 Order Info: 0184-1 - CBCD Performed By: #### L 502.0250, L100.0100, L500.4100, L500.4050, L501.9985 #### [facility] [address] [place], [address] IG% 0.500 Normal 0.0-0.9 [facility] Comment on above: Order Comment: Order Date: 10/22/24 Order Info: 0184-1 - CBCD Result Comment: IG% - Immature Granulocytes (promyelocytes, myelocytes and metamyelocytes) > 1% indicates that a LEFT SHIFT is Present. Performed By: #### L 502.0250, L100.0100, L500.4100, L500.4050, L501.9985 #### [facility] [address] [place], [address] Lymphocytes/100 WBC (Bld) 19.9 % Normal 19-41 [facility] Comment on above: Order Comment: Order Date: 10/22/24 Order Info: 0184-1 - CBCD Performed By: #### L 502.0250, L100.0100, L500.4100, L500.4050, L501.9985 #### [facility] [address] [place], [address] MCH (RBC) [Entitic mass] 30.1 pg Normal 27.0-32.0 [facility] Comment on above: Order Comment: Order Date: 10/22/24 Order Info: 0184-1 - CBCD Performed By: #### L 502.0250, L100.0100, L500.4100, L500.4050, L501.9985 #### [facility] [address] [place], [address] MCHC (RBC) [Mass/Vol] 33.3 g/dL Normal 32-36 [facility] Comment on above: Order Comment: Order Date: 10/22/24 Order Info: 0184-1 - CBCD Performed By: #### L 502.0250, L100.0100, L500.4100, L500.4050, L501.9985 #### [facility] [address] [place], [address] MCV (RBC) [Entitic vol] 90.4 fL Normal 80-94 [facility] Comment on above: Order Comment: Order Date: 10/22/24 Order Info: 0184-1 - CBCD Performed By: #### L 502.0250, L100.0100, L500.4100, L500.4050, L501.9985 #### [facility] [address] [place], [address] Monocytes/100 WBC (Bld) 8.8 % Normal 0-10 [facility] Comment on above: Order Comment: Order Date: 10/22/24 Order Info: 0184- - CBCD Performed By: #### L 502.0250, L100.0100, L500.4100, L500.4050, L501.9985 #### [facility] [address] [place], [address] Neutrophils/100 WBC (Bld) 68.1 % Normal 47-70 [facility] Comment on above: Order Comment: Order Date: 10/22/24 Order Info: [id number]- - CBCD Performed By: #### L 502.0250, L100.0100, L500.4100, L500.4050, L501.9985 #### [facility] [address] [place], [address] Nucleated RBC (Bld) [#/Vol] 0 10*3/uL Normal 0-5 [facility] Comment on above: Order Comment: Order Date: 10/22/24 Order Info: [id number]- - CBCD Performed By: #### L 502.0250, L100.0100, L500.4100, L500.4050, L501.9985 #### [facility] [address] [place], [address] Platelet mean volume (Bld) [Entitic vol] 11.4 fL Normal 6.2-12.0 [facility] Comment on above: Order Comment: Order Date: 10/22/24 Order Info: 0184-1 - CBCD Performed By: #### L 502.0250, L100.0100, L500.4100, L500.4050, L501.9985 #### [facility] [address] [place], [address] Platelets (Bld) [#/Vol] 339 10*3/uL Normal 150-450 [facility] Comment on above: Order Comment: Order Date: 10/22/24 Order Info: 0184-1 - CBCD Performed By: #### L 502.0250, L100.0100, L500.4100, L500.4050, L501.9985 #### [facility] [address] [place], [address] RBC (Bld) [#/Vol] 5.39 10*6/uL Normal 4.6-6.2 [facility] Comment on above: Order Comment: Order Date: 10/22/24 Order Info: [id number]- - CBCD Performed By: #### L 502.0250, L100.0100, L500.4100, L500.4050, L501.9985 #### [facility] [address] [place], [address] RDW SD 42.9 fl Normal 35.1-43.9 [facility] Comment on above: Order Comment: Order Date: 10/22/24 Order Info: 0184- - CBCD Performed By: #### L 502.0250, L100.0100, L500.4100, L500.4050, L501.9985 #### [facility] [address] [place], [address] WBC (Bld) [#/Vol] 8.7 10*3/uL Normal 4.4-11.0 [facility] Comment on above: Order Comment: Order Date: 10/22/24 Order Info: [id number] - CBCD Performed By: #### L 502.0250, L100.0100, L500.4100, L500.4050, L501.9985 #### [facility] [address] [place], [address] Carbon dioxide measurementOr dered By: Amilcar Wayne on 10-22-2024 CO2 [Moles/Vol] 29.0 mmol/L 21.0-32.0 [facility] Chloride measurementOrdered By: Amilcar Wayne on 10-22-2024 Chloride [Moles/Vol] 104 mmol/L 98-107 [facility] Comprehensive Metabolic Prof ilon 10-22-2024 Albumin [Mass/Vol] 3.9 g/dL Normal 3.2-5.0 [facility] Comment on above: Order Comment: Order Date: 10/22/24 Order Info: [id number] - CMP Order Info: [id number] - LIPID Performed By: #### L 502.0250, L100.0100, L500.4100, L500.4050, L501.9985 #### [facility] [address] [place], [address] Albumin/Globulin [Mass ratio] 1.0 {ratio} Normal 0.9-2.4 [facility] Comment on above: Order Comment: Order Date: 10/22/24 Order Info: [id number] - CMP Order Info: [id number] - LIPID Performed By: #### L 502.0250, L100.0100, L500.4100, L500.4050, L501.9985 #### [facility] [address] [place], [address] ALK P 69 U/L Normal 45-117 [facility] Comment on above: Order Comment: Order Date: 10/22/24 Order Info: [id number] - CMP Order Info: [id number] - LIPID Performed By: #### L 502.0250, L100.0100, L500.4100, L500.4050, L501.9985 #### [facility] [address] [place], [address] ALT [Catalytic activity/Vol] 57 U/L Normal 16-61 [facility] Comment on above: Order Comment: Order Date: 10/22/24 Order Info: 0786- - CMP Order Info: [id number] - LIPID Performed By: #### L 502.0250, L100.0100, L500.4100, L500.4050, L501.9985 #### [facility] [address] [place], [address] AST [Catalytic activity/Vol] 34 U/L Normal 15-37 [facility] Comment on above: Order Comment: Order Date: 10/22/24 Order Info: 0786 - CMP Order Info: [id number] - LIPID Performed By: #### L 502.0250, L100.0100, L500.4100, L500.4050, L501.9985 #### [facility] [address] [place], [address] Bilirubin [Mass/Vol] 0.40 mg/dL Normal 0.20-1.00 [facility] Comment on above: Order Comment: Order Date: 10/22/24 Order Info: 0786- - CMP Order Info: [id number] - LIPID Result Comment: For patients on eltrombopag therapy, use of Dimension Falcon TBIL is not recommended. Performed By: #### L 502.0250, L100.0100, L500.4100, L500.4050, L501.9985 #### [facility] [address] [place], [address] BUN/CRE 11.2 RATIO Normal 10-20 [facility] Comment on above: Order Comment: Order Date: 10/22/24 Order Info: 0786- - CMP Order Info: [id number] - LIPID Performed By: #### L 502.0250, L100.0100, L500.4100, L500.4050, L501.9985 #### [facility] [address] [place], [address] CA,Total 10.0 mg/dL Normal 8.5-10.1 [facility] Comment on above: Order Comment: Order Date: 10/22/24 Order Info: [id number] - CMP Order Info: [id number] - LIPID Performed By: #### L 502.0250, L100.0100, L500.4100, L500.4050, L501.9985 #### [facility] [address] [place], [address] Chloride [Moles/Vol] 104 mmol/L Normal 98-107 [facility] Comment on above: Order Comment: Order Date: 10/22/24 Order Info: [id number] - CMP Order Info: [id number] - LIPID Performed By: #### L 502.0250, L100.0100, L500.4100, L500.4050, L501.9985 #### [facility] [address] [place], [address] CO2 [Moles/Vol] 29.0 mmol/L Normal 21.0-32.0 [facility] Comment on above: Order Comment: Order Date: 10/22/24 Order Info: [id number] - CMP Order Info: [id number] - LIPID Performed By: #### L 502.0250, L100.0100, L500.4100, L500.4050, L501.9985 #### [facility] [address] [place], [address] Creatinine [Mass/Vol] 1.34 mg/dL High 0.70-1.30 [facility] Comment on above: Order Comment: Order Date: 10/22/24 Order Info: [id number] - CMP Order Info: [id number] - LIPID Result Comment: The validity of the calculated GFR GFRAA in patients over 70 years has not been determined. Clinical correlation is essential. Performed By: #### L 502.0250, L100.0100, L500.4100, L500.4050, L501.9985 #### [facility] [address] [place], [address] EST GFR - AA 71 mL/min Normal >60 [facility] Comment on above: Order Comment: Order Date: 10/22/24 Order Info: 0786 - CMP Order Info: [id number] - LIPID Result Comment: Afri can Greek GFR Calc Performed By: #### L 502.0250, L100.0100, L500.4100, L500.4050, L501.9985 #### [facility] [address] [place], [address] GAP 7 Normal 5-15 [facility] Comment on above: Order Comment: Order Date: 10/22/24 Order Info: 07 - CMP Order Info: [id number] - LIPID Performed By: #### L 502.0250, L100.0100, L500.4100, L500.4050, L501.9985 #### [facility] [address] [place], [place], [address] GFR/1.73 sq M.predicted among non-blacks MDRD (S/P/Bld) [Vol rate/Area] 59 mL/min/{1.73_m2} Low >60 [facility] Comment on above: Order Comment: Order Date: 10/22/24 Order Info: 0786 - CMP Order Info: [id number] - LIPID Result Comment: Non- GFR Calc Performed By: #### L 502.0250, L100.0100, L500.4100, L500.4050, L501.9985 #### [facility] [address] [place], [address] Globulin (S) [Mass/Vol] 4.1 g/dL Normal 2.2-4.2 [facility] Comment on above: Order Comment: Order Date: 10/22/24 Order Info: 0786- - CMP Order Info: [id number] - LIPID Performed By: #### L 502.0250, L100.0100, L500.4100, L500.4050, L501.9985 #### [facility] [address] [place], [place], [address] Glucose [Mass/Vol] 110 mg/dL High 74-106 [facility] Comment on above: Order Comment: Order Date: 10/22/24 Order Info: [id number] - CMP Order Info: [id number] - LIPID Result Comment: Fast ing Glucose result from 100 to 125 mg/dL suggests IMPAIRED HOMEOSTASIS per A.D.A. criteria. Performed By: #### L 502.0250, L100.0100, L500.4100, L500.4050, L501.9985 #### [facility] [address] [place], [place], [address] Potassium [Moles/Vol] 4.8 mmol/L Normal 3.5-5.1 [facility] Comment on above: Order Comment: Order Date: 10/22/24 Order Info: 0786- - CMP Order Info: [id number] - LIPID Performed By: #### L 502.0250, L100.0100, L500.4100, L500.4050, L501.9985 #### [facility] [address] [place], [place], [address] Sodium [Moles/Vol] 140 mmol/L Normal 136-145 [facility] Comment on above: Order Comment: Order Date: 10/22/24 Order Info: [id number] - CMP Order Info: [id number] - LIPID Performed By: #### L 502.0250, L100.0100, L500.4100, L500.4050, L501.9985 #### [facility] [address] [place], [address] T PROT 8.0 g/dL Normal 6.4-8.2 [facility] Comment on above: Order Comment: Order Date: 10/22/24 Order Info: [id number] - CMP Order Info: [id number] - LIPID Performed By: #### L 502.0250, L100.0100, L500.4100, L500.4050, L501.9985 #### [facility] [address] [place], [place], [address] Urea nitrogen [Mass/Vol] 15 mg/dL Normal - [facility] Comment on above: Order Comment: Order Date: 10/22/24 Order Info: [id number] - CMP Order Info: [id number] - LIPID Performed By: #### L 502.0250, L100.0100, L500.4100, L500.4050, L501.9985 #### [facility] [address] [place], [address] Eosinophil percentageOrdered By: Amilcar Wayne on 10-22-2024 Eosinophils/100 WBC (Bld) 2.0 % 0-5 [facility] Erythrocyte distribution wid th ratioOrdered By: Amilcar Wayne on 10-22-2024 Erythrocyte distribution width (RBC) [Ratio] 13.1 % 11.6-14.6 [facility] Erythrocyte distribution wid th standard deviationOrdered By: Amilcar Wayne on 10-22-2024 Erythrocyte distribution width (RBC) [Ratio] 42.9 fl 35.1-43.9 [facility] Glomerular filtration rate ( GFR) estimationOrdered By: Amilcar Wayne on 10-22-2024 GFR/1.73 sq M.predicted among non-blacks MDRD (S/P/Bld) [Vol rate/Area] 59 mL/min/{1.73_m2} Low >60 [facility] Comment on above: Non- GFR Calc Glucose measurementOrdered B y: Amilcar Wayne on 10-22-2024 Glucose [Mass/Vol] 110 mg/dL High 74-106 [facility] Comment on above: Fasting Glucose resu lt from 100 to 125 mg/dL suggests IMPAIRED HOMEOSTASIS per A.D.A. criteria. Hematocrit Auto (Bld) [Volum e fraction]Ordered By: Amilcar Wayne on 10-22-2024 Hematocrit (Bld) [Volume fraction] 48.7 % 40-54 [facility] Hemoglobin A1con 10-22-2024 HbA1c (Bld) [Mass fraction] 6.4 % High 3.8-5.6 [facility] Comment on above: Order Comment: Order Date: 10/22/24 Order Info: [id number] - A1C Result Comment: Norm al < 5.7 % Prediabetic 5.7 - 6.4 % Diabetic >or= 6.5 % Please note range changes. Performed By: #### L 502.0250, L100.0100, L500.4100, L500.4050, L501.9985 #### [facility] [address] [place], [address] Hemoglobin A1c percentageOrd ered By: Amilcar Wayne on 10-22-2024 HbA1c (Bld) [Mass fraction] 6.4 % High 3.8-5.6 [facility] Comment on above: Normal < 5.7 % Predi abetic 5.7 - 6.4 % Diabetic >or= 6.5 % Please note range changes. Hemoglobin measurementOrdere d By: Amilcar Wayne on 10-22-2024 Hemoglobin (Bld) [Mass/Vol] 16.2 g/dL 13.0-16.5 [facility] High density lipoprotein (HD L) measurementOrdered By: Amilcar Wayne on 10-22-2024 Cholesterol in HDL [Mass/Vol] 41 mg/dL >40 [facility] Comment on above: The drugs N-Acetylcy steine and Metamizole may falsely depress this assay. Reference Range HDL <40 mg/dL Low HDL Cholesterol HDL >or= 60 mg/dL High HDL Cholesterol Immature granulocytes/100 WB C Auto (Bld)Ordered By: Amilcar Wyane on 10-22-2024 Immature granulocytes/100 WBC (Bld) 0.500 % 0.0-0.9 [facility] Comment on above: IG% - Immature Granu locytes (promyelocytes, myelocytes and metamyelocytes) > 1% indicates that a LEFT SHIFT is Present. Laboratory - Chemistry and C hemistry - challengeOrdered By: Amilcar Wayne on 10-22-2024 AST [Catalytic activity/Vol] 34 U/L 15-37 [facility] Lipid Profileon 10-22-2024 Cholesterol [Mass/Vol] 144 mg/dL Normal 200 [facility] Comment on above: Order Comment: Order Date: 10/22/24 Order Info: [id number] - CMP Order Info: [id number] - LIPID Result Comment: <200 mg/dL Desirable 200-240 mg/dL Borderline >240 mg/dL High Risk Performed By: #### L 502.0250, L100.0100, L500.4100, L500.4050, L501.9985 #### [facility] [address] [place], [address] Cholesterol in HDL [Mass/Vol] 41 mg/dL Normal [facility] Comment on above: Order Comment: Order Date: 10/22/24 Order Info: 0786 - CMP Order Info: [id number] - LIPID Result Comment: The drugs N-Acetylcysteine and Metamizole may falsely depress this assay. Reference Range HDL <40 mg/dL Low HDL Cholesterol HDL >or= 60 mg/dL High HDL Cholesterol Performed By: #### L 502.0250, L100.0100, L500.4100, L500.4050, L501.9985 #### [facility] [address] [place], [address] Cholesterol in LDL [Mass/Vol] 53 mg/dL Normal 0-130 [facility] Comment on above: Order Comment: Order Date: 10/22/24 Order Info: [id number] - CMP Order Info: [id number] - LIPID Performed By: #### L 502.0250, L100.0100, L500.4100, L500.4050, L501.9985 #### [facility] [address] [place], [address] Cholesterol in VLDL [Mass/Vol] 50 mg/dL High 5-40 [facility] Comment on above: Order Comment: Order Date: 10/22/24 Order Info: [id number] - [facility] Order Info: [id number] - LIPID Performed By: #### L 502.0250, L100.0100, L500.4100, L500.4050, L501.9985 #### [facility] [address] [place], [address] Triglyceride [Mass/Vol] 252 mg/dL High [facility] Comment on above: Order Comment: Order Date: 10/22/24 Order Info: [id number] - CMP Order Info: [id number] - LIPID Result Comment: The drugs N-Acetylcysteine and Metamizole may falsely depress this assay. Serum Triglycerides Reference Interval Normal <150 mg/dL Borderline high 150 - 199 mg/dL High 200 - 499 mg/dL Very High > or = 500 mg/dL Performed By: #### L 502.0250, L100.0100, L500.4100, L500.4050, L501.9985 #### [facility] [address] [place], [address] Low density lipoprotein (LDL ) cholesterol measurementOrdered By: Amilcar Wayne on 10-22-2024 Cholesterol in LDL [Mass/Vol] 53 mg/dL 0-130 [facility] MCV (mean corpuscular volume ) determinationOrdered By: Amilcar Wayne on 10-22-2024 MCV (RBC) [Entitic vol] 90.4 fL 80-94 [facility] Mean corpuscular hemoglobin (MCH) determinationOrdered By: Amilcar Wayne on 10-22-2024 MCH (RBC) [Entitic mass] 30.1 pg 27.0-32.0 [facility] Mean corpuscular hemoglobin concentration (MCHC) determinationOrdered By: Amilcar Wayne on 10-22-2024 MCHC (RBC) [Mass/Vol] 33.3 g/dL 32-36 [facility] Mean platelet volume determi nationOrdered By: Amilcar Wayne on 10-22-2024 Platelet mean volume (Bld) [Entitic vol] 11.4 fL 6.2-12.0 [facility] Microalb:Creat Ratio,Random URon 10-22-2024 Creatinine [Mass/Vol] 270.00 mg/dL Normal NO RANGE EST . [facility] Comment on above: Order Comment: Order Date: 10/22/24 Order Info: [id number] - MIACRE Order Info: [id number] - MIALB Performed By: #### L 502.0250, L100.0100, L500.4100, L500.4050, L501.9985 #### [facility] [address] [place], [address] MALB:CRE 729.6 mg/g CRE High <30 mg/g CRE [facility] Comment on above: Order Comment: Order Date: 10/22/24 Order Info: [id number] - MIACRE Order Info: [id number] - MIALB Performed By: #### L 502.0250, L100.0100, L500.4100, L500.4050, L501.9985 #### [facility] [address] [place], [place], [id number] MICROALBUMIN,UR 1970.0 mg/L Normal NO RANGE EST. [facility] Comment on above: Order Comment: Order Date: 10/22/24 Order Info: [id number] - MIACRE Order Info: [id number] - MIALB Performed By: #### L 502.0250, L100.0100, L500.4100, L500.4050, L501.9985 #### [facility] [address] [place], [place], [id number] Monocyte percentageOrdered B y: Amilcar Wayne on 10-22-2024 Monocytes/100 WBC (Bld) 8.8 % 0-10 [facility] Neutrophil percentageOrdered By: Amilcar Wayne on 10-22-2024 Neutrophils/100 WBC (Bld) 68.1 % 47-70 [facility] Nucleated red blood cell per centageOrdered By: Amilcar Wayne on 10-22-2024 Nucleated RBC/100 WBC (Bld) [Ratio] 0 % 0-5 [facility] Platelet countOrdered By: Estella Wayne on 10-22-2024 Platelets (Bld) [#/Vol] 339 10*3/uL 150-450 [facility] Potassium measurementOrdered By: Amilcar Wayne on 10-22-2024 Potassium [Moles/Vol] 4.8 mmol/L 3.5-5.1 [facility] RBC Auto (Bld) [#/Vol]Ordere d By: Amilcar Wayne on 10-22-2024 RBC (Bld) [#/Vol] 5.39 10*6/uL 4.6-6.2 [facility] Serum anion gap measurementO rdered By: Amilcar Wayne on 10-22-2024 Anion gap [Moles/Vol] 7 mmol/L 5-15 [facility] Serum globulin measurementOr dered By: Amilcar Wayne on 10-22-2024 Globulin (S) [Mass/Vol] 4.1 g/dL 2.2-4.2 [facility] Serum or plasma alanine zhu otransferase (ALT) measurementOrdered By: Amilcar Wayne on 10-22-2024 ALT [Catalytic activity/Vol] 57 U/L 16-61 [facility] Serum or plasma albumin rocky urement (mass/volume)Ordered By: Amilcar Wayne on 10-22-2024 Albumin [Mass/Vol] 3.9 g/dL 3.2-5.0 [facility] Serum or plasma alkaline elian sphatase measurementOrdered By: Amilcar Wayne on 10-22-2024 ALP [Catalytic activity/Vol] 69 U/L 45-117 [facility] Serum or plasma calcium rocky urement (mass/volume)Ordered By: Amilcar Wayne on 10-22-2024 Calcium [Mass/Vol] 10.0 mg/dL 8.5-10.1 [facility] Serum or plasma cholesterol measurement (mass/volume)Ordered By: Amilcar Wayne on 10-22-2024 Cholesterol [Mass/Vol] 144 mg/dL <200 [facility] Comment on above: <200 mg/dL Desirable 200-240 mg/dL Borderline >240 mg/dL High Risk Serum or plasma creatinine m easurement (mass/volume)Ordered By: Amilcar Wayne on 10-22-2024 Creatinine [Mass/Vol] 1.34 mg/dL High 0.70-1.30 [facility] Comment on above: The validity of the calculated GFR & GFRAA in patients over 70 years has not been determined. Clinical correlation is essential. Serum or plasma urea nitroge n measurement (mass/volume)Ordered By: Amilcar Wayne on 10-22-2024 Urea nitrogen [Mass/Vol] 15 mg/dL 7-18 [facility] Sodium levelOrdered By: Amilcar Wayne on 10-22-2024 Sodium [Moles/Vol] 140 mmol/L 136-145 [facility] Total proteinOrdered By: Gerard Wayne on 10-22-2024 Protein [Mass/Vol] 8.0 g/dL 6.4-8.2 [facility] Triglycerides measurementOrd ered By: Amilcar Wayne on 10-22-2024 Triglyceride [Mass/Vol] 252 mg/dL High <199 [facility] Comment on above: The drugs N-Acetylcy steine and Metamizole may falsely depress this assay.Serum Triglycerides Reference Interval Normal <150 mg/dL Borderline high 150 - 199 mg/dL High 200 - 499 mg/dL Very High > or = 500 mg/dL Urine creatinine measurement (mass/volume)Ordered By: Amilcar Wayne on 10-22-2024 Creatinine (U) [Mass/Vol] 270.00 mg/dL NO RANGE EST. [facility] Very low density lipoprotein (VLDL) cholesterol measurementOrdered By: Amilcar Wayne on 10-22-2024 Very low density lipoprotein (VLDL) cholesterol measurement 50 mg/dL High 5-40 [facility] White blood cell (WBC) count Ordered By: Amilcar Wayne on 10-22-2024 WBC (Bld) [#/Vol] 8.7 10*3/uL 4.4-11.[address] [facility] [address] Dose [address] Lung Screeningon 08-20-[address] Lung Screening [facility] Imaging Services [address] [place] [address] Lung Screening MR#: [id number] Acct: [id number] Name: RHETT WELLS Rep #: [id number] : 1970 M 54 From: Miki aguirre MD PCP: Dr. Amilcar Wayne MD Status: [facility] Study: Low Dose CT Lung Screening Date of Exam: 08/20 Exam# [id number] Ordering Dr: Amilcar Wayne MD [id number] STUDY: LOW DOSE CT LUNG CANCER SCREENING REASON FOR EXAM: Male, 54 years old. History of tobacco use. Patient smoked 1 pack per day for 24 years. RADIATION DOSAGE (If Supplied By Facility): CTDIvol = ( 4.02 ) mGy, DLP = ( 127.88 ) mGycm TECHNIQUE: No contrast was administered. Low dose technique was utilized (average mAS-38 and kVp 120). 1.25 mm axial source images with a slice interval of 1.25-mm were reconstructed in lung windows. 2.5 mm axial source images with a slice interval of 2.5-mm were reconstructed in lung windows. 5.0 mm axial source images with a slice interval of 5.0-mm were reconstructed in soft tissue windows. COMPARISON: Comparison is made with prior study dated November 30, 2021. NODULES: Since prior study, there are multiple small scattered bilateral pulmonary nodules. The largest is in the peripheral lateral aspect of the left upper lobe and measures 7 mm. Possibly faint calcifications are seen. Emphysema: No significant emphysematous changes are seen. Endobronchial lesion: Not Aorta: Remarkable CORONARY ARTERIES: Coronary artery calcification is not seen. Heart: Unremarkable Pulmonary artery: Remarkable Mediastinal nodes: Unremarkable Other chest and abdominal findings: CT/Low Dose CT Lung Screening IMPRESSION: Lung-RADS category 3 - Continue screening with LDCT in 6 months. IMPORTANT NOTES FOR USE: ACR Lung-RADS Version 1.1 Assessment Categories Release Date: 2018 Category: Coded 0-4 bases on nodule(s) with highest degree of suspicion. Negative screen is defined as categories 1 and 2; a positive screen is defined as categories 3 and 4. Category 3 and 4A nodules that are unchanged on interval CT should be coded as category 2, and individuals returned to screening in 12 months. Category 4X: Category 3 or 4 nodules with additional imaging findings that increase the suspicion of lung cancer, such as spiculation, GGN that doubles in size in 1 year, enlarged lymph notes, etc. Category Modifiers: S (significant finding unrelated to lung cancer) Electronically Signed: Miki Samayoa MD at 14:01 EST , CC: Dr. Amilcar Wayne MD Yarn Dyer: Signed Normal [facility] Iron measurement (mass/mass) on 11-11-2021 Iron (Unsp spec) [Mass/Mass] 99 ug/dL 65-175 [facility] Work Phone: Laboratory - Chemistry and C hemistry - challengeon 11-11-2021 Transferrin [Mass/Vol] 277 mg/dL [facility] Work Phone: Comment on above: Performed at: [place] [id number] Director: Dev Lopez PhD, Phone: [phone] No Panel Informationon 11-11 Total Iron Binding Capacity 356 ug/dL 250-450 [facility] Work Phone: Serum or plasma ferritin zena surement (mass/volume)on 11-11-2021 Ferritin [Mass/Vol] 143 ng/mL 26-388 [facility] Work Phone: Serum or plasma iron saturat ion measurement (mass fraction)on 11-11-2021 Iron saturation [Mass fraction] 27.8 % 15.0-55.0 [facility] Work Phone: Absolute lymphocyte counton 11-08-2021 Lymphocytes Auto (Unsp spec) [#/Vol] 2.06 10*3/uL 0.83-4.51 [facility] Work Phone: Basophil percentageon 2021 Basophil percentage 0 SEEN /hpf [facility] Work Phone: Basophils/100 WBC (Bld) 0.4 % 0-1 [facility] Work Phone: Bilirubin [Mass/Vol] 0.30 mg/dL 0.20-1.00 [facility] Work Phone: Comment on above: For patients on eltr ombopag therapy, use of Dimension Falcon TBIL is not recommended. Chloride [Moles/Vol] 109 mmol/L 98-107 [facility] Work Phone: [phone] Cholesterol [Mass/Vol] 144 mg/dL <200 Wo case [facility] Work Phone: Comment on above: <200 mg/dL Desirable 200-240 mg/dL Borderline >240 mg/dL High Risk Eosinophils/100 WBC (Bld) 1.1 % 0-5 [facility] Work Phone: Glucose [Mass/Vol] 91 mg/dL 74-106 [facility] Work Phone: [phone] Neutrophils (Bld) [#/Vol] 8.1 10*3/uL 2.0-7.7 [facility] Work Phone: [phone] Neutrophils/100 WBC (Bld) 71.4 % 47-70 [facility] Work Phone: [phone] Potassium [Moles/Vol] 4.1 mmol/L 3.5-5.1 [facility] Work Phone: [phone] Protein [Mass/Vol] 7.5 g/dL 6.4-8.2 [facility] Work Phone: [phone] Sodium [Moles/Vol] 138 mmol/L 136-145 [facility] Work Phone: [phone] Triglyceride [Mass/Vol] 292 mg/dL [facility] Work Phone: [phone] Comment on above: The drugs N-Acetylcy steine and Metamizole may falsely depress this assay.Serum Triglycerides Reference Interval Normal <150 mg/dL Borderline high 150 - 199 mg/dL High 200 - 499 mg/dL Very High > or = 500 mg/dL WBC (Bld) [#/Vol] 11.4 10*3/uL 4.4-11.0 [facility] Work Phone: [phone] Bilirubin Test strip Ql (U)o n 11-08-2021 Bilirubin Ql (U) Negative Negative [facility] Work Phone: Blood erythrocytes count (nu mber/volume)on 11-08-2021 RBC (Bld) [#/Vol] 5.43 10*6/uL 4.6-6.[facility]: Blood hemoglobin measurement (mass/volume)on 11-08-2021 Hemoglobin (Bld) [Mass/Vol] 17.0 g/dL 13.0-16.5 [facility] Work Phone: Blood lymphocytes/100 leukoc yteson 11-08-2021 Lymphocytes/100 WBC (Bld) 18.1 % 19-41 [facility] Work Phone: Blood monocytes/100 leukocyt eson 11-08-2021 Monocytes/100 WBC (Bld) 8.8 % 0-10 [facility] Work Phone: Blood platelet mean volumeon 11-08-2021 Platelet mean volume (Bld) [Entitic vol] 11.6 fL 6.2-12.0 [facility] Work Phone: Calcium oxalate crystals det ection in urine sediment by light microscopyon 11-08-2021 Calcium oxalate crystals LM Ql (Urine sed) RARE /hpf [facility] Work Phone: Determination of erythrocyte mean corpuscular volume (MCV)on 11-08-2021 MCV (RBC) [Entitic vol] 89.1 fL 80-94 [facility] Work Phone: Hematocrit Auto (Bld) [Volum e fraction]on 11-08-2021 Hematocrit (Bld) [Volume fraction] 48.4 % 40-54 [facility] Work Phone: Ketones Test strip Ql (U)on 11-08-2021 Ketones Ql (U) 5 mg/dl Negative [facility] Work Phone: Laboratory - Chemistry and C hemistry - challengeon 11-08-2021 ALP [Catalytic activity/Vol] 66 U/L 45-117 [facility] Work Phone: ALT [Catalytic activity/Vol] 54 U/L 16-61 [facility] Work Phone: [phone] CO2 [Moles/Vol] 24.0 mmol/L 21.0-32.0 [facility] Work Phone: Globulin (S) [Mass/Vol] 3.6 g/dL 2.2-4.2 [facility] Work Phone: Magnesium [Mass/Vol] 2.0 mg/dL 1.6-2.6 [facility] Work Phone: Urea nitrogen/Creatinine [Mass ratio] 16.4 mg/mg 10-20 [facility] Work Phone: Laboratory - Hematology and Cell countson 11-08-2021 Erythrocyte distribution width (RBC) [Entitic vol] 42.2 fL 35.1-43.9 [facility] Work Phone: Erythrocyte distribution width (RBC) [Ratio] 12.9 % 11.6-14.6 [facility] Work Phone: Immature granulocytes/100 WBC (Bld) 0.200 % 0.0-0.9 [facility] Work Phone: Comment on above: IG% - Immature Granu locytes (promyelocytes, myelocytes and metamyelocytes) > 1% indicates that a LEFT SHIFT is Present. MCH (RBC) [Entitic mass] 31.3 pg 27.0-32.0 [facility] Work Phone: Nucleated RBC/100 WBC (Bld) [Ratio] 0 % 0-5 [facility] Work Phone: MCHC Auto (RBC) [Mass/Vol]on 11-08-2021 MCHC (RBC) [Mass/Vol] 35.1 g/dL 32-36 [facility] Work Phone: Mucus LM Ql (Urine sed)on Mucus Ql (Urine sed) 0 SEEN /hpf [facility] Work Phone: Nitrite Test strip Ql (U)on 11-08-2021 Nitrite Ql (U) Negative Negative [facility] Work Phone: No Panel Informationon 11-08 Estimated GFR (MDRD) Amer 91 mL/min >60 [facility] Work Phone: Comment on above: GFR Calc Estimated GFR (MDRD) Non-Af Amer 75 mL/min >60 [facility] Work Phone: Comment on above: Non- GFR Calc Thyroid Stimulating Hormone (TSH) 0.93 uIU/mL 0.358-3.74 [facility] Work Phone: Platelets bldon 11-08-2021 Platelets (Bld) [#/Vol] 301 10*3/uL 150-450 [facility] Work Phone: Protein Test strip Ql (U)on 11-08-2021 Protein Ql (U) 15 mg/dl Negative [facility] Work Phone: Serum or plasma albumin rocky urement (mass/volume)on 11-08-2021 Albumin [Mass/Vol] 3.9 g/dL 3.2-5.0 [facility] Work Phone: Serum or plasma albumin/glob ulin mass ratioon 11-08-2021 Albumin/Globulin [Mass ratio] 1.1 {ratio} 0.9-2.4 [facility] Work Phone: Serum or plasma calcium rocky urement (mass/volume)on 11-08-2021 Calcium [Mass/Vol] 9.6 mg/dL 8.5-10.1 [facility] Work Phone: Serum or plasma cholesterol in HDL measurement (mass/volume)on 11-08-2021 Cholesterol in HDL [Mass/Vol] 39 mg/dL [facility] Work Phone: Comment on above: The drugs N-Acetylcy steine and Metamizole may falsely depress this assay. Reference Range HDL <40 mg/dL Low HDL Cholesterol HDL >or= 60 mg/dL High HDL Cholesterol Serum or plasma cholesterol in VLDL measurement (mass/volume)on 11-08-2021 Cholesterol in VLDL [Mass/Vol] 58 mg/dL 5-40 [facility] Work Phone: Serum or plasma creatinine m easurement (mass/volume)on 11-08-2021 Creatinine [Mass/Vol] 1.10 mg/dL 0.70-1.30 [facility] Work Phone: Comment on above: The validity of the calculated GFR & GFRAA in patients over 70 years has not been determined. Clinical correlation is essential. Serum or plasma low density lipoprotein (LDL) cholesterol measurement (mass/volume)on 11-08-2021 Cholesterol in LDL [Mass/Vol] 47 mg/dL 0-130 [facility] Work Phone: Serum or plasma urea nitroge n measurement (mass/volume)on 11-08-2021 Urea nitrogen [Mass/Vol] 18 mg/dL 7-18 [facility] Work Phone: Squamous epithelial cells de tection in urine sediment by light microscopyon 11-08-2021 Epithelial cells.squamous LM Ql (Urine sed) 0 SEEN /hpf [facility] Work Phone: Thin prep Papanicolaou smear with manual screeningon 11-08-2021 Thin prep Papanicolaou smear with manual screening 28 U/L 15-37 [facility] Work Phone: Thin prep Papanicolaou smear with manual screening 5 5-15 [facility] Work Phone: Urine blood detectionon 03-0 RBC Ql (U) 10 /ul Negative [facility] Work Phone: RBC Ql (U) 0 SEEN /hpf [facility] Work Phone: Urine clarityon 11-08-2021 Clarity (U) Clear Clear [facility] Work Phone: Urine color determinationon 11-08-2021 Color (U) Yellow Yellow [facility] Work Phone: Urine glucose detectionon Glucose Ql (U) Normal mg/dl Normal [facility] Work Phone: Urine leukocyte esterase det ection by dipstickon 11-08-2021 Leukocyte esterase Test strip Ql (U) Negative Negative [facility] Work Phone: Urine pHon 11-08-2021 pH (U) 5.0 [pH] [facility] Work Phone: Urine sediment bacteria coun t by microscopy (number/high power field)on 11-08-2021 Bacteria LM.HPF (Urine sed) [#/Area] 0 /[HPF] None Seen [facility] Work Phone: Urine specific gravity measu rementon 11-08-2021 Specific gravity (U) [Rel density] 1.025 [facility] Work Phone: Urobilinogen Auto test strip Ql (U)on 11-08-2021 Urobilinogen Ql (U) Normal mg/dl Normal [facility] Work Phone: Vital Signs Date Time Vital Sign Value Performing Clinician Faci lity 01-14-2025 08:10-0400 Body temperature 98.4 [degF] Dr. Amilcar Wayne MD Work Phone: [facility] 01-14-2025 08:10-0400 Diastolic blood pressure 79 mm[Hg] Dr. Amilcar Wayne MD Work Phone: [facility] 01-14-2025 08:10-0400 Heart rate 66 /min Dr. Amilcar Wayne MD Work Phone: [facility] 01-14-2025 08:10-0400 Respiratory rate 18 /min Dr. Amilcar Wayne MD Work Phone: [facility] 01-14-2025 08:10-0400 SaO2% (BldA) [Mass fraction] 94 % Dr. Amilcar Wayne MD Work Phone: [facility] 01-14-2025 08:10-0400 Systolic blood pressure 137 mm[Hg] Dr. Amilcar Wayne MD Work Phone: [facility] 01-14-2025 06:52-0400 Body height 180.[address] Amilcar Wayne MD Work Phone: [facility] 01-14-2025 06:52-0400 Body mass index (BMI) [Ratio] 39.3 kg/m2 Dr. Amilcar Wayne MD Work Phone: [phone] [place] [address] 01-14-2025 06:52-0400 Body weight [address] Amilcar Wayne MD Work Phone: [phone] [place] [address] 12-24-2024 12:58-0400 Body mass index (BMI) [Ratio] 39.6 kg/m2 Dr. Amilcar Wayne MD Work Phone: [phone] [place] [address] 12-24-2024 12:58-0400 Body temperature 97.2 [degF] Dr. Amilcar Wayne MD Work Phone: [phone] [place] [address] 12-24-2024 12:58-0400 Body weight 129.[address] Amilcar Wayne MD Work Phone: [phone] [place] [address] 12-24-2024 12:58-0400 Diastolic blood pressure 76 mm[Hg] Dr. Amilcar Wayne MD Work Phone: [phone] [place] [address] 12-24-2024 12:58-0400 Heart rate 73 /min Dr. Amilcar Wayne MD Work Phone: [phone] [place] [address] 12-24-2024 12:58-0400 Respiratory rate 18 /min Dr. Amilcar Wayne MD Work Phone: [phone] [place] [address] 12-24-2024 12:58-0400 SaO2% (BldA) [Mass fraction] 100 % Dr. Amilcar Wayne MD Work Phone: [phone] [place] [address] 12-24-2024 12:58-0400 Systolic blood pressure 144 mm[Hg] Dr. Amilcar Wayne MD Work Phone: [phone] [place] [address] 11-26-2024 11:16-0400 Body mass index (BMI) [Ratio] 39.4 kg/m2 Dr. Amilcar Wayne MD Work Phone: [facility] 11-26-2024 11:16-0400 Body weight 128.[address] Amilcar Wayne MD Work Phone: [facility] 11-26-2024 11:16-0400 Diastolic blood pressure 79 mm[Hg] Dr. Amilcar Wayne MD Work Phone: [phone] [place] [address] 11-26-2024 11:16-0400 Heart rate 67 /min Dr. Amilcar Wayne MD Work Phone: [phone] [place] [address] 11-26-2024 11:16-0400 Respiratory rate 16 /min Dr. Amilcar Wayne MD Work Phone: [phone] [place] [address] 11-26-2024 11:16-0400 Systolic blood pressure 150 mm[Hg] Dr. Amilcar Wayne MD Work Phone: [phone] [place] [address] 10-09-2023 10:55-0500 Body height 180.[address] Amilcar Wayne Work Phone: [phone] [place] [address] 10-09-2023 10:55-0500 Body mass index (BMI) [Ratio] 38.6 kg/m2 Dr. Amilcar Wayne Work Phone: [facility] 10-09-2023 10:55-0500 Body weight 125.[address] Amilcar Wayne Work Phone: [facility] 10-09-2023 10:55-0500 Diastolic blood pressure 77 mm[Hg] Dr. Amilcar Wayne Work Phone: [facility] 10-09-2023 10:55-0500 Heart rate 57 /min Dr. Amilcar Wayne Work Phone: [facility] 10-09-2023 10:55-0500 Respiratory rate 20 /min Dr. Amilcar Wayne Work Phone: [facility] 10-09-2023 10:55-0500 SaO2% (BldA) [Mass fraction] 94 % Dr. Amilcar Wayne Work Phone: [facility] 10-09-2023 10:55-0500 Systolic blood pressure 137 mm[Hg] Dr. Amilcar Wayne Work Phone: [facility] Encounters Encounter Date Encounter Type Care Provider Facility Start: 01-14-2025 Non-patient / Non-visit Dr. Jairon Bernstein MD -[facility] Start: 01-14-2025 End: 01-14-2025 Admission to same day surgery center Dr. Jairon Bernstein MD -Endoscopy Work Phone: Start: 01-14-2025 End: 01-14-[address] Amilcar Wayne MD Work Phone: [facility] Work Phone: Start: 12-24-2024 End: 12-24-[address] Jairon Bernstein MD -[facility] Work Phone: Start: 12-24-2024 End: 12-24-2024 ambulatory Jairon Bernstein Facility:[facility] Start: 12-02-2024 End: 12-02-2024 ambulatory Jerry Dozier Facility:[facility] Start: 12-02-2024 End: 12-02-[address] Jerry Dozier MD -[facility] Work Phone: Start: 11-26-2024 End: 11-26-2024 ambulatory Jerry Dozier Facility:[facility] Start: 11-26-2024 End: 11-26-[address] Jerry Dozier MD -[facility] Work Phone: Start: 10-22-2024 End: 10-22-[address] Amilcar Wayne MD -Laboratory, [facility] Start: 10-22-2024 End: 10-22-2024 ambulatory Amilcar Wayne Facility:[facility] Start: 09-02-2024 End: 09-02-2024 ambulatory Amilcar Wayne Facility:[facility] Start: 08-20-2024 End: 08-20-2024 ambulatory Amilcar Wayne Facility:[facility] Start: 06-09-2024 End: 06-09-2024 ambulatory Amilcar Wayne Facility:[facility] Start: 03-04-2024 End: 03-04-2024 ambulatory Amilcar Wayne Facility:[facility] Start: 11-15-2023 Non-patient / Non-visit Dr. Amilcar Wayne Work Phone: [facility] Work Phone: Start: 11-14-2023 Non-patient / Non-visit Dr. Amilcar Wayne Work Phone: [facility] Start: 11-14-2023 End: 11-14-[address] Amilcar Wayne Work Phone: [facility] Work Phone: Start: 11-14-2023 End: 11-14-[address] Amilcar Wayne Work Phone: [facility] Work Phone: Start: 10-09-2023 End: 10-09-[address] Amilcar Wayne Work Phone: [facility] Work Phone: Start: 09-04-2023 End: 09-04-[address] Amilcar Wayne Work Phone: [facility] Work Phone: Start: 11-30-2021 End: 11-30-2021 Patient encounter procedure [facility] Start: 11-11-2021 End: 11-11-2021 Patient encounter procedure [facility] Start: 11-08-2021 End: 11-08-2021 Patient encounter procedure [facility] Date Procedure Procedure Detail Performing Clinician Start: 01-14-[address] Amilcar michel MD Work Phone: Start: 10-22-2024 Measurement of renal function Dr. Amilcar st MD Work Phone: Comment on above: GFR Calc Start: 10-22-[address] Amilcar mcneil MD Work Phone: Start: 10-22-2024 Urine microalbumin/creatinine ratio measurement Dr. Amilcar Wayne MD Work Phone: Start: 11-30-2021 CT of chest Plan of Treatment Date Care Activity Detail Author Start: 01-14-[facility] Work Phone: [facility] Payers Date Payer Category Payer Self-pay [id number] 2023 Private Health Insurance [id number] Unknown [id number] 2.16.8 [id number] Unknown [id number] 2.16.8 [id number] Unknown [id number] 2.16.8 [id number] Unknown [id number] 2.16.8 [id number] Unknown [id number] 2.16.8 [id number] Unknown [id number] 2.16.8 [id number] Unknown [id number] 2.16.8 [id number] Unknown [id number] 2.16.8 [id number] Unknown [id number] 2.16.8 [id number] Unknown [id number] 2.16.8 [id number] Unknown [id number] 2.16.8 [id number] Unknown [id number] 2.16.8 [id number] Unknown [id number] 2.16.8 [id number] Social History Date Type Detail Facility Start: 05-20-2021 End: 10-09-2023 Tobacco smoking status NHIS Unknown if ever smoked [facility] Start: 1970 Sex Assigned At Male W [facility] Start: 01-09-2025 Tobacco smoking stat us GAIS Ex-smoker (finding) [facility] Goals Date Patient Goal Desired Activity /State Mental Status Date Assessment Result Facility 01-14-2025 Cognitive function Level Of Consciousness Sedated [facility] Work Phone: 01-14-2025 Cognitive function Voice/Name [facility] Work Phone: Clinical Notes 11-26-2024 to 01-14-2025 Note Date & Type Note Facility 01-14-2025 Consult note [facility] 01-14-2025 Procedure note [facility] 01-14-2025 Procedure note [facility] 01-14-2025 Consult note [facility] 01-14-2025 History and physi eleonora note [facility] 01-14-2025 Note [facility] Medical Records Department [address] [place] [address] History Physical Exam 01/14/25 0654 MR#: [id number] Acct: [id number] Name: RHETT WELLS Rep #: [id number] : 1970 54 From: Jairon Bernstein MD PCP: Dr. Amilcar Wayne MD Status:[facility] Location: [place] [address] History and Physical Date of Admission: 01/14/25 Intake Vital Signs 10/09/2409:55 11/20/2507:55 11/26/2510:16 12/25/2511:58 Height 5 ft 11 in 5 ft 11 in 5 ft 11 in 5 ft 11 in Weight: 283 lb 284 lb 8 oz BMI 39.4 39.6 BP 150/79 H 144/76 H Blood Pressure Location Lt brachial Rt brachial Position Sitting Sitting Respiration 16 18 Pulse 67 73 Pulse Source Monitor Monitor Temp 97.2 F L Temp Source Temporal Pulse Oximetry (%) 100 Oxygen Delivery Method room air Intake Visit Reasons: RECALL EGD Chief Complaint: recall EGD Accompanied by: Is patient in pain?: No Allergies Sulfa (Sulfonamide Antibiotics) Allergy (Unknown, Verified 11/26/24 11:17) Unknown Medications ???Medication ???Instructions ???Recorded ???Confirmed ???Type omeprazole 40 mg capsule,delayed See Rx Instructions .Route 04/12/23 12/24/24 Rx release .COMPLEX #90 caps metformin 500 mg tablet,extended 250 mg PO BID 11/26/24 12/24/24 History release 24 hr PFSH Medical History Former smoker GERD (gastroesophageal reflux disease) Pacemaker at end of battery life Syncope and collapse Presence of cardiac pacemaker Sinoatrial block Surgical History History of permanent cardiac pacemaker placement ( 08/2020) History of permanent cardiac pacemaker placement ( 07/2006) History of tonsillectomy and adenoidectomy Family History Father Brain aneurysmBrother Multiple sclerosisUncle CAD (coronary artery disease)Grandfather CAD (coronary artery disease)Grandfather CVA (cerebral vascular accident) Cancer LungGrandmother Breast cancer Social History Smoking Status: Former smoker alcohol intake: never substance use type: does not use HPI HPI HPI: Patient is a 54-year-old male here for EGD. 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 He was ordered to follow-up in 3 years for repeat. He denies any abdominal pain at this time. ROS General General: No weight change, appetite, fatigue, colon cancer, breast cancer or weakness HEENT HEENT: No difficulty swallowing, eye injury, eye surgery, swollen glands or hoarseness Endo Endocrine: No thyroid disease, diabetes mellitus, thyroid cancer, Hair loss, heat intolerance or cold intolerance Skin Skin: No rash or changing moles Musc Musculoskeletal: No back problems, arthritis, rheumatoid arthritis, gout or joint pain Cardio Cardiovascular: Yes pacemaker; No murmur, heart disease, atrial fibrillation, high blood pressure, heart attack, heart stent, palpitations, shortness of breath with exertion or chest pain Psych Psychiatric: No depression, anxiety or hearing voices Resp Respiratory: No shortness of breath, Yes sleep apnea, No cough, No COPD, No asthma, No emphysema and No wheezing Gastro Gastrointestinal: No abdominal pain, No nausea or vomiting, No diarrhea, No constipation, No blood in stool, Yes acid reflux, No hemorrhoids, No ulcers, No gallbladder problem and No black,tarry stools Fernando Hematologic: No blood thinners, No blood disorders, No bleeding, No anemia and No blood clots Neuro Neurologic: No numbness, No tingling and No weakness Exam Const General: cooperative Orientation: alert and oriented x3 HENMT Head: normal to inspection Neck Neck: normal visual inspection and full ROM Chest Chest palpation inspection: normal inspection of the chest Resp Effort Inspection: normal respiratory effort Auscultation: clear to auscultation bilaterally Cardio Rate: regular rate Rhythm: regular rhythm GI Inspection: non-distended Palpation: soft and nontender Skin General: no rashes or lesions noted Neuro General: patient alert and patient oriented x3 Extrem General: full ROM Psych Appearance: grossly normal Mental Status: mental status grossly normal Assessment and Plan Assessment and Plan (1) History of Carmichael's esophagus: Status: Acute Plan: Patient has a history of Carmichael's and requires surveillance EGD. I discussed this with him in detail. I explained endoscopy in detail to the patient. I explained the risks including but not limited to stroke or heart attack with anesthesia, perforation of the GI tract, bleeding, infection. I explained that any of these could necessitate further emergenc (more content not included)... [facility] 11-26-2024 Evaluation note Diagnosis Onset Date Resolution Presence of cardiac pacemaker chronic November 26, 2024 11:04am Presence of cardiac pacemaker chronic November 26, 2024 11:04am Sinoatrial block chronic November 262024 11:04am History of Carmichael's esophagus acute December 24, 2024 12:46pm [facility] Work Phone: Consult note Author Joey Lynn [facility] Note Date/Time January 14, 2025 7:34a m [facility] Medical Records Department [address] [place] [address] Pre-Anesthesia Evaluation 01/14/25 0731 MR#: [id number] Acct: [id number] Name: RHETT WELLS Rep #:[id number] : 1970 54 From: Joey Barney PCP: Dr. Amilcar Wayne MD Status:[facility] Race: C Location: [place] [address] ASA Classification* ASA Classification ASA Classification: 3 Assessment & Plan Anesthesia* Anesthesia Assessment Anesthesia Assessment: Discussed sedation and/or anesthesia options, risks, benefits, and alternatives with patient/parents/legal guardian/POA. Questions invited. The patient/parents/legal guardian/POA seems to understand and agrees to proceedwith anesthesia plan. Reviewed the physical assessment, medical history, allergy history and patient home medications list prior to surgery/procedure/anesthetic and documented any changes. Performed airway and anesthesia risk assessments. Anesthesia Type Anesthesia Type: MAC History Source History Obtained from:: Patient and Chart Anesthesia Focused Assessment* Temperature: 97.8 F Pulse Rate: 71 Blood Pressure: 165/83 Respiratory Rate: 16 Pulse Ox: 97 Oxygen Delivery Method: Room Air Airway Assessment Mouth opens: >3 cm Mallampati Score: II Teeth Condition: Intact and Caps/Crowns Focused Labs Anesthesia Preop lab: CBC WBC 8.7 K/mm3 (4.4-11.0) 10/22/24 09:56 10/22/24 RBC 5.39 M/mm3 (4.6-6.2) 10/22/24 09:56 10/22/24 Hgb 16.2 g/dL (13.0-16.5) 10/22/24 09:56 10/22/24 Hct 48.7 % (40-54) 10/22/24 09:56 10/22/24 Plt Count 339 K/mm3 (150-450) 10/22/24 09:56 10/22/24 CHEMISTRY Potassium 4.8 mmol/L (3.5-5.1) 10/22/24 09:56 10/22/24 Sodium 140 mmol/L (136-145) 10/22/24 09:56 10/22/24 Magnesium 2.0 mg/dL (1.6-2.6) 11/08/21 15:02 11/08/21 BUN 15 mg/dL (7-18) 10/22/24 09:56 10/22/24 Creatinine 1.34 mg/dL (0.70-1.30) H 10/22/24 09:56 Glucose 110 mg/dL (74-106) H 10/22/24 09:56 10/22/24 POC Glucose 166 mg/dL (74-106) H 01/14/25 06:52 01/14/25 TSH 0.93 uIU/mL (0.358-3.74) 11/08/21 15:02 COAG PT 12.4 SECONDS (11.7-14.9) 08/05/19 10:14 Pre-Assessment Diagnosis/Proposed Procedure Planned Operative Procedure(s): EGD Anesthesia History 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 When Was Last Pacemaker Check 201811/19/24 08:55 QUESTION #4 FULL TEXT: You/Your Family Experience fever (hyperthermia) with Anesthesia Last Oral Intake Last Oral intake: Last Oral Intake NPO since 05:30 01/14/25 06:52 Meds taken in AM with sips of water? 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 Female No 01/09/25 09:46 HX of Motion Sickness No 01/09/25 09:46 HX of N/V After Surgery No 01/09/25 09:46 Non-Smoker Yes 01/09/25 09:46 Duration of Surgery greater No 01/09/25 09:46 than 60 minutes Number of Risk Factors 1 01/09/25 09:46 PONV Score Low Risk 01/09/25 09:46 Height & Weight Height & Weight: Anesthesia: Height & Weight Height 5 ft 11 in 01/14/25 06:52 Weight: 128 kg 01/14/25 06:52 Body Mass Index (BMI) 39.3 01/14/25 06:52 Respiratory Assessment Respiratory Assessment - print machine operator: Respiratory Tract Infection Hx - print machine operator Hx Respiratory Tract Infection No 01/09/25 09:46 STOP Sleep Apnea STOP Sleep Apnea - print machine operator: STOP Sleep Apnea - print machine operator Hx Hypertension No 01/09/25 09:46 Hx Sleep Apnea Yes 01/09/25 09:46 CPAP Yes 01/09/25 09:46 BIPAP No 01/09/25 09:46 Do you snore loudly (louder than talking or can be heard Do you often feel tired/ fatigued/ sleepy during daytime? Has anyone observed you stop breathing during sleep? STOP Results Positive 01/09/25 09:46 QUESTION #5 FULL TEXT : Do you snore loudly (louder than talking or can be heard through closed doors)? 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 Specify any problems Hx of Preganancy in last 3 N/A 01/09/25 09:46 Months Nurse Filling Out Transfusion NBUCHER 01/09/25 09:46 & Questions: Date: 01/09/25 01/09/25 09:46 Time: 09:48 01/09/25 09:46 Patient unable to answer at this time (ie. confused, unrespo /Reproduction History /Reproductive History - print machine operator: /Reproductive Hx- print machine operator Hx Now No 01/09/25 09:46 Gestational Age (in weeks): EDC: Hx Hx Para Hx Section SAB No 01/09/25 09:46 Active Medications Active Medications: Current Medications Generic Name Dose Route Start Last Admin Trade Name Freq PRN Reason Stop Dose Admin Lactated Ringer's 1,000 mls @ 15 mls/hr 01/14/25 06:30 01/14/25 07:08 IV 15 mls/hr .Q48H JUVENTINO Administration PFSH Medical History Loss of hearing Diabetes CPAP (continuous positive airway pressure) dependence Sleep apnea History of stress test History of echocardiogram Cardiology follow-up encounter Former smoker GERD (gastroesophageal reflux disease) Pacemaker at end of battery life Syncope and collapse Presence of cardiac pacemaker Sinoatrial block Home Medications ?Medication ?Instructions ?Recorded ?Last Taken ?Type omeprazole 40 mg capsule,delayed See Rx Instructions . Route 04/12/23 Unknown Rx release .COMPLEX #90 caps metformin 500 mg tablet,extended 250 mg PO BID 5 Unknown History release 24 hr Allergy/AdvReac Type Severity Reaction Status Date / Time Sulfa (Sulfonamide Allergy Unknown Unknown Verified 01/09/25 09:45 Antibiotics) Family History Father Brain aneurysm Brother Multiple sclerosis Uncle CAD (coronary artery disease) Grandfather CAD (coronary artery disease) Grandfather CVA (cerebral vascular accident) Cancer Lung Grandmother Breast cancer Surgical History History of colonoscopy History of esophagogastroduodenoscopy (EGD) History of permanent cardiac pacemaker placement (~08/2020) History of permanent cardiac pacemaker placement (~07/2006) History of tonsillectomy and adenoidectomy Social History Smoking Status: Former smoker alcohol intake: never substance use type: does not use Addt'l Information Additional Findings: EKG NSR Review of Systems (Anesthesia) ROS Narrative System reviewed and no additional complaints, except as documented. Physical Exam Const alert and oriented x3 Orientation / Consciousness: awake Chest Chest: pacemaker Cardio regular rate and regular rhythm Neuro oriented x3 and moves all extremities 01/14/25 0734 <Electronically signed by Joey Lynn MD> Date _ Joey Lynn MD Cosigner Signature: Date CC: ~ Signed [facility] Work Phone: Consult note Author Oscar Guzman [facility] Note Date/Time January 14, 2025 8:01a [facility] Medical Records Department [address] [place] [address] Anesthesia Postop Eval I 01/14/25 08 MR#: [id number] Acct: [id number] Name: RHETT WELLS Rep #:[id number] : 1970 54 From: Oscar Guzman PCP: Dr. Amilcar Wayne MD Status: [facility] Race: C Location: [place] [address] Anesthesia: Postop Eval I Current Vital Signs Temperature: 97.8 F Pulse Rate: 67 Blood Pressure: 130/65 Respiratory Rate: 14 Pulse Ox: 94 Oxygen Delivery Method: Room Air Assessment Airway patent: Yes Spontaneous unlabored respirations: Yes Mental status: Asleep nausea: No Vomiting: No Anesthesia Complication: No Fluid Hydration Crystalloid volume administer (ml): 300 Total IV fluid infused: 300 Progress Note Anesthesia document: Postop Eval 1 completed: Yes 01/14/25 0801 <Electronically signed by Oscar Guzman > Date _ Oscar Guzman Cosigner Signature: Date CC: ~ Signed [facility] Work Phone: Evaluation noteNo assessment information available [facility] Work Phone: Evaluation note* Diagnosis Onset Date Resolution Status Presence of cardiac pacemaker chronic Sinoatrial block chronic Syncope and collapse chronic [facility] Work Phone: History and physical note Author Jairon Bernstein [facility] Note Date/Time January 14, 2025 6:55a m [facility] Medical Records Department [address] [place] [address] History & Physical Exam 01/14/25 0654 MR#: [id number] Acct: [id number] Name: RHETT WELLS Rep #:[id number] : 1970 54 From: Jairon holman MD PCP: Dr. Amilcar Wayne MD Status:[facility] Location: [place] [address] History and Physical Date of Admission: 01/14/25 Intake Vital Signs 10/09/2409:55 11/20/2507:55 11/26/2510:16 12/25/2511:58 Height 5 ft 11 in 5 ft 11 in 5 ft 11 in 5 ft 11 in Weight: 283 lb 284 lb 8 oz BMI 39.4 39.6 BP 150/79 H 144/76 H Blood Pressure Location Lt brachial Rt brachial Position Sitting Sitting Respiration 16 18 Pulse 67 73 Pulse Source Monitor Monitor Temp 97.2 F L Temp Source Temporal Pulse Oximetry (%) 100 Oxygen Delivery Method room air Intake Visit Reasons: RECALL EGD Chief Complaint: recall EGD Accompanied by: Is patient in pain?: No Allergies Sulfa (Sulfonamide Antibiotics) Allergy (Unknown, Verified 11/26/24 11:17) Unknown Medications ?Medication ?Instructions ?Recorded ?Confirmed ?Type omeprazole 40 mg capsule,delayed See Rx Instructions .Route 04/12/23 12/24/24 Rx release .COMPLEX #90 caps metformin 500 mg tablet,extended 250 mg PO BID 11/26/24 12/24/24 History release 24 hr [facility] Medical History Former smoker GERD (gastroesophageal reflux disease) Pacemaker at end of battery life Syncope and collapse Presence of cardiac pacemaker Sinoatrial block Surgical History History of permanent cardiac pacemaker placement (~08/2020) History of permanent cardiac pacemaker placement (~07/2006) History of tonsillectomy and adenoidectomy Family History Father Brain aneurysmBrother Multiple sclerosisUncle CAD (coronary artery disease)Grandfather CAD (coronary artery disease)Grandfather CVA (cerebral vascular accident) Cancer LungGrandmother Breast cancer Social History Smoking Status: Former smoker alcohol intake: never substance use type: does not use HPI HPI HPI: Patient is a 54-year-old male here for EGD. 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 He was ordered to follow-up in 3 years for repeat. He denies any abdominal pain at this time. ROS General General: No weight change, appetite, fatigue, colon cancer, breast cancer or weakness HEENT HEENT: No difficulty swallowing, eye injury, eye surgery, swollen glands or hoarseness Endo Endocrine: No thyroid disease, diabetes mellitus, thyroid cancer, Hair loss, heat intolerance or cold intolerance Skin Skin: No rash or changing moles Musc Musculoskeletal: No back problems, arthritis, rheumatoid arthritis, gout or joint pain Cardio Cardiovascular: Yes pacemaker; No murmur, heart disease, atrial fibrillation, high blood pressure, heart attack, heart stent, palpitations, shortness of breath with exertion or chest pain Psych Psychiatric: No depression, anxiety or hearing voices Resp Respiratory: No shortness of breath, Yes sleep apnea, No cough, No COPD, No asthma, No emphysema and No wheezing Gastro Gastrointestinal: No abdominal pain, No nausea or vomiting, No diarrhea, No constipation, No blood in stool, Yes acid reflux, No hemorrhoids, No ulcers, No gallbladder problem and No black,tarry stools Fernando Hematologic: No blood thinners, No blood disorders, No bleeding, No anemia and No blood clots Neuro Neurologic: No numbness, No tingling and No weakness Exam Const General: cooperative Orientation: alert and oriented x3 HENMT Head: normal to inspection Neck Neck: normal visual inspection and full ROM Chest Chest palpation & inspection: normal inspection of the chest Resp Effort & Inspection: normal respiratory effort Auscultation: clear to auscultation bilaterally Cardio Rate: regular rate Rhythm: regular rhythm GI Inspection: non-distended Palpation: soft and nontender Skin General: no rashes or lesions noted Neuro General: patient alert and patient oriented x3 Extrem General: full ROM Psych Appearance: grossly normal Mental Status: mental status grossly normal Assessment and Plan Assessment and Plan (1) History of Carmichael's esophagus: Status: Acute Plan: Patient has a history of Carmichael's and requires surveillance EGD. I discussed this with him in detail. I explained endoscopy in detail to the patient. I explained the risks includingbut not limited to stroke or heart attack with anesthesia, perforation of the GItract, bleeding, infection. I explained that any of these could necessitate further emergency surgery. The patient understands and all questions were answered sufficiently. The patient wishes to proceed with procedure. Jairon Bernstein MD Pager: [facility] [address] [place] [address], [address] [place] [address] Office: I have examined the patient and the H&P has been reviewed. There are no clinicalchanges since date of exam. 01/14/25 0655 <Electronically signed by Jairon Bernstein MD> Cosigner Signature (if applicable): CC: Dr. Jairon Bernstein MD; Dr. Amilcar Wayne MD~ Signed [facility] Work Phone: Reason for referral (narrative)No reason for [facility] Work Phone: Chief Complaint and Reason for Visit Chief Complaint EORDER HX OF TOBACCO ABUSE Chief Complaint Pacer Check Remote 1 Y FU NSVT, PACEMAKER Amb Documentation Reason for Visit Presence of cardiac pacemaker Sinoatrial block Syncope and collapse Chief Complaint Admit Date Pacer Check Remote November 26, 2024 9:0 0am Annual in -clinic f/u. Sees MANAGER ANALYSIS @ November 26, 2024 11:04am Pacer Check Remote December 02, 2024 12: 31am RECALL EGD December 24, 2024 12: 46pm Reason for Visit Admit Date Presence of cardiac pacemaker November 11:04am Sinoatrial block November 26, 2024 11: 04am History of Carmichael's esophagus December 12:46pm Family History No Family History Records Found Relationship Condition Age at Onset Recorded Date/T jim father Cerebral aneurysm Unknown brother Multiple sclerosis Unknown uncle Coronary artery disease Unknown grandfather Coronary artery disease Unknown grandfather Cerebrovascular accident (CVA) Unknown Malignant neoplasm Unknown Relationship Condition Age at Onset Recorded Date/T jim father Cerebral aneurysm Unknown brother Multiple sclerosis Unknown uncle Coronary artery disease Unknown grandfather Coronary artery disease Unknown grandfather Cerebrovascular accident (CVA) Unknown Malignant neoplasm Unknown grandmother Malignant neoplasm of breast Unknown Advance Directives No Advanced Directives Records Found Advance Directive Response Recorded Date/ Time Advance Directives No August 12, 2019 10:13am Living Will No August 12 10:13am Power of Senior Supply Chain Analyst No August 12, 2019 10:13am Advance Directive Response Recorded Date/ Time Advance Directives No August 12, 2019 10:13am Living Will No January 12, 2022 1 2:03pm Power of Senior Supply Chain Analyst No January 12, 2022 12:03pm Advance Directive Response Recorded Date/ Time Living Will No January 12, 2022 1 2:03pm Do you have a Healthcare Power of Senior Supply Chain Analyst? No January 12, 2022 12:03pm Advance Directives No November 19, 025 8:55am Do you have a Healthcare Power of Senior Supply Chain Analyst? No January 09, 2025 9:46am Summary Purpose Additional Source Comments Goals (unrecognized section and content) Goals may be documented in a n alternate sectionGoals may be documented in an alternate section Care Teams (unrecognized sec tion and content) Team Status: Active Member Role Status Dates Dr. Romie Engel , Family Provider Active Dr. Amilcar Wayne MD Primary Care Provider Active Team Status: Inactive Member Role Status Dates Dr. Amilcar Wayne MD Primary Care Provider, Referr ing Provider Active Edna Tenorio [employer], [employer]-C Attending Provider Active Team Status: Inactive Member Role Status Dates Dr. Amilcar Wayne MD Primary Care Provider Active Dr. Jerry Dozier MD Attending Provider, Referring Pro vider Active Team Status: Active Member Role Status Dates Dr. Amilcar Wayne MD Primary Care Provider Active Dr. Jerry Dozier MD Attending Provider Active Team Status: Active Member Role Status Dates Dr. Amilcar Wayne MD Primary Care Provider Active Edna Tenorio [employer], [employer]-C Attending Provider Active Team Status: Inactive Member Role Status Dates Dr. Amilcar Wayne MD Primary Care Provider Active Edna Tenorio [employer], [employer]-C Attending Provider, Referring P rovider Active Team Status: Active Member Role Status Dates Dr. Amilcar Wayne MD Primary Care Provider Active Team Status: Inactive Member Role Status Dates Dr. Amilcar Wayne MD Primary Care Provider Active Start: October 22, 2024 End: October 22, 2024 Dr. Amilcar Wayne MD Attending Provider Active Start: October 22, 2024 End: October 22, 2024 Dr. Amilcar Wayne MD Referring Provider Active Start: October 22, 2024 End: October 22, 2024 Team Status: Inactive Member Role Status Dates Dr. Amilcar Wayne MD Primary Care Provider Active Start: November 26, 2024 End: November 26, 2024 Dr. Jerry Dozier MD Attending Provider Active S tart: November 26, 2024 End: November 26, 2024 Team Status: Inactive Member Role Status Dates Dr. Amilcar Wayne MD Primary Care Provider Active Start: November 26, 2024 End: November 26, 2024 Dr. Jerry Dozier MD Attending Provider Active S tart: November 26, 2024 End: November 26, 2024 Dr. Jerry Dozier MD Referring Provider Active S tart: November 26, 2024 End: November 26, 2024 Team Status: Inactive Member Role Status Dates Dr. Amilcar Wayne MD Primary Care Provider Active Start: December 02, 2024 End: December 02, 2024 Dr. Jerry Dozier MD Attending Provider Active S tart: December 02, 2024 End: December 02, 2024 Dr. Jerry Dozier MD Referring Provider Active S tart: December 02, 2024 End: December 02, 2024 Team Status: Inactive Member Role Status Dates Dr. Amilcar Wayne MD Primary Care Provider Active Start: December 24, 2024 End: December 24, 2024 Dr. Amilcar Wayne MD Referring Provider Active Start: December 24, 2024 End: December 24, 2024 Dr. Jairon Bernstein MD Attending Provider Active Start: December 24, 2024 End: December 24, 2024 Team Status: Inactive Member Role Status Dates Dr. Amilcar Wayne MD Primary Care Provider Active Start: January 14, 2025 End: January 14, 2025 Dr. Amilcar Wayne MD Referring Provider Active Start: January 14, 2025 End: January 14, 2025 Dr. Jairon Bernstein MD Attending Provider Active Start: January 14, 2025 End: January 14, 2025 Team Status: Active Member Role Status Dates Dr. Amilcar Wayne MD Primary Care Provider Active Start: January 14, 2025 Dr. Amilcar Wayne MD Referring Provider Active Start: January 14, 2025 Dr. Jairon Bernstein MD Attending Provider Active Start: January 14, 2025 Dr. Jairon Bernstein MD Other Provider Active Start: January 14, 2025 (unrecognized sect ion and content) No Status Records Found INFORMATION SOURCE (unrecogn ized section and content) DATE CREATED AUTHOR 01/21/2025 [facility] FOR RECORDS PERTAINING TO PATIENTS WHO ARE OR HAVE BEEN ENROLLED IN A CHEMICAL DEPENDENCY/SUBSTANCEABUSE PROGRAM, SOME INFORMATION MAY BE OMITTED. This clinical summary was aggregated from multiple sources. Caution should be exercised in using it in the provision of clinical care. This summary normalizes information from multiple sources, and as a consequence, information in this document may materially change the coding, format and clinical context of patient data. In addition, data may be omitted in some cases. CLINICAL DECISIONS SHOULD BE BASED ON THE PRIMARY CLINICAL RECORDS. [employer] provides no warranty or guarantee of the accuracy or completeness of information in this document.
== END | disposition home or self-care (01) ==
LOC: CT 07:42
PROVIDERS: PCP Family Medicine; Referring Provider Family Medicine; Visit Provider Family Medicine
DX: R91.8 Other nonspecific abnormal finding of lung field (principal)
CPT/HCPCS: 71250

== ENCOUNTER → 2025-03-19 | Outpatient (CLI) | payer OTHER, SELFPAY ==
[2025-03-19 12:06] LABS: Hematocrit 47.5 % (40-54); Hemoglobin 16.1 g/dL (13.0-16.5); Immature Granulocytes Count 0.040 X10^3/uL (0.0-0.0); Mean Corp Hgb Conc 33.9 g/dL (32-36); Mean Corpuscular Volume 88.1 fL (80-94); Mean Platelet Vol. 11.6 fl (6.2-12.0); NRBC Flagged by Analyzer 0 % (0-5); Platelet Count 282 K/mm3 (150-450); RBC Distribution Width CV 13.4 % (11.6-14.6); RBC Distribution Width SD 43.2 fl (35.1-43.9); Red Blood Count 5.39 M/mm3 (4.6-6.2); White Blood Count 9.6 K/mm3 (4.4-11.0)
[2025-03-19 12:45] LABS: AST(SGOT) 39 U/L (<=37); Alanine Aminotransfer ALT/SGPT 54 U/L (<=46); Albumin, Serum 4.3 g/dL (3.5-5.0); Alkaline Phosphatase 67 U/L (40-129); Anion Gap 12 (5-15); BUN 14 mg/dL (4-19); BUN/Creat Ratio 13.8 RATIO (10-20); Calcium,Total 9.5 mg/dL (7.6-11.0); Carbon Dioxide 24.7 mmol/L (21.0-32.0); Chloride 103 mmol/L (98-108); Cholesterol 138 mg/dL (<=200); Globulin 2.9 g/dL (2.2-4.2); Glucose 107 mg/dL (70-99); Low Density Lipoprotein Calc. 59 mg/dL; Potassium 4.2 mmol/L (3.3-5.1); Triglycerides 210 mg/dL; Very Low Density Lipoprotein 42 mg/dL (5-40); cholesterol:hdl ratio screen 3.75
== END | disposition home or self-care (01) ==
LOC: MFPLAB 10:08
PROVIDERS: PCP Family Medicine; Referring Provider Family Medicine; Visit Provider Family Medicine
DX: E11.8 Type 2 diabetes mellitus with unspecified complications (principal)
CPT/HCPCS: 36415; 80053; 80061; 83036; 85025

== ENCOUNTER → 2025-09-01 | Outpatient (CLI) | payer OTHER, SELFPAY ==
--- NOTE | 2025-09-01 13:14 | CT_ITS ---
PROCEDURE: CHEST WITHOUT CONTRAST 09/01/2025 REASON FOR EXAM: HISTORY OF NODULES AND TOBACCO USE TECHNIQUE: Chest CT without contrast. Coronal and Sagittal reconstruction series were provided. One or more dose reduction techniques were used (e.g., Automated exposure control, adjustment of the mA and/or kV according to patient size, use of iterative reconstruction technique COMPARISON: CTs dated 02/14/2025 and 08/20/2024.. FINDINGS: Multiple scattered nodules are noted within both lungs, including several small clusters of nodules. This is not significantly changed. The largest of these measures 10 mm in the left upper lobe (series 4, image 24). No pleural effusion. No pneumothorax. The heart is normal in size. What appears to be a single cardiac pacemaker wire is noted. Enlarged mediastinal and bilateral hilar lymph nodes, unchanged. Moderate lower thoracic spondylosis. Stable hepatomegaly. CT/Chest without Contrast IMPRESSION: Multiple bilateral pulmonary nodules, as described above and not significantly changed from the previous studies dating back to 08/20/2024. Stable mediastinal and bilateral hilar lymphadenopathy. Stable hepatomegaly. Reading Location: [id number]
== END | disposition home or self-care (01) ==
LOC: CT 13:03
PROVIDERS: PCP Family Medicine; Referring Provider Family Medicine; Visit Provider Family Medicine
DX: R91.8 Other nonspecific abnormal finding of lung field (principal)
CPT/HCPCS: 71250